=== PATIENT | female | born 2000 | race Caucasian/White ===

== ENCOUNTER 2020-08-20 23:28 | Emergency (ER) | payer OTHER, MEDICAID, SELFPAY ==
[2020-08-21 00:30] VITALS: BP 141/79; PULSE 78; RESP 18; TEMP 36.6; O2SAT 100; BMI 45.6
--- NOTE | 2020-08-21 00:30 | CT_ITS ---
EXAMINATION: CT ABDOMEN AND PELVIS WITH CONTRAST CLINICAL INFORMATION: Diffuse abdominal pain. COMPARISON: None. TECHNIQUE: Contiguous axial thin section helical images of the abdomen and pelvis were performed following the administration of 85 mL of intravenous Omnipaque 350. The data set was reformatted in the coronal and sagittal planes and reviewed on an independent workstation. DLP: 1103 mGy-cm. FINDINGS: The visualized lung bases are clear. The visualized portions of the heart are unremarkable. The liver is of normal size and attenuation without focal lesions nor intrahepatic biliary ductal dilation. A normal gallbladder is identified. There is no wall thickening or discernible pericholecystic fluid. The spleen, pancreas, adrenal glands are unremarkable. Both kidneys are of normal size and attenuation without hydronephrosis or nephrolithiasis. Following the administration of IV contrast, prompt symmetric nephrograms are displayed. There is no abdominal free fluid. There is neither mesenteric nor retroperitoneal lymphadenopathy. Normal unopacified loops of small and large bowel are identified. A normal appendix is identified. There is no pelvic free fluid. The urinary bladder is unremarkable. There is neither pelvic nor inguinal lymphadenopathy. Bone windows: Neither sclerotic nor lytic bone lesions are identified. CT/CT abdomen pelvis w con IMPRESSION: No evidence for acute abdominal or pelvic inflammatory or infectious processes. Automated exposure control (Care Dose) Adjustment of the mA and/or kv according to patient size (this includes techniques or standardized protocols for targeted exams where dose is matched to indication / reason for exam; i.e. extremities or head).
--- NOTE | 2020-08-21 00:31 | ED_ITS ---
HPI - Abdominal Pain General Chief Complaint: Abdominal Pain Stated Complaint: ABD PAIN Time Seen by Provider: 08/20/20 23:48 Source: patient Mode of arrival: ambulatory Limitations: no limitations History of Present Illness HPI narrative: Patient comes to emergency room complaining of 3 weeks of abdominal pain. Patient states that she has history of constipation, this morning she had a bowel movement that was very hard and caused mild anal bleeding. Patient states the pain is diffuse, sometimes in the left upper quadrant, but this time it is mostly in the right lower quadrant. Patient states she has had intermittent nausea, vomiting, no diarrhea MD elicited complaint: abdominal pain Related Data Previous Rx's Medication Instructions Recorded polyethylene glycol 3350 [Miralax] 17 g PO BID #30 ea 08/21/20 Allergies Allergy/AdvReac Type Severity Reaction Status Date / Time No Known Allergies Allergy Unverified 05/11/20 19:40 [No Known Allergies*] Review of Systems Review of Systems Constitutional : No Weight loss, No Fever, No Chills, No Night Sweats, No Fatigue, No Malaise ENT/Mouth : No Hearing loss, No Ear Pain, No Nasal Congestion, No Sinus Pain, No Hoarseness, No sore throat, No Rhinorrhea, No Swallowing Difficulty Eyes: No Eye Pain, No Swelling, No Redness, No Foreign Body, No Discharge, No Vision Changes Cardiovascular : No Chest Pain, No SOB, No Dyspnea on Exertion, No Orthopnea, No Edema, No Palpitations Respiratory : No Cough, No Sputum, No Wheezing, No Smoke Exposure, No Dyspnea Gastrointestinal : Complaining of nausea, occasional vomiting, no diarrhea, complaining of constipation, complaining intermittent abdominal pain, worse in the move right lower quadrant, sometimes in the left upper quadrant Genitourinary : no irregular bleeding, No Dysuria, No Urinary Frequency, No Hematuria, No Urinary Incontinence, No Urgency, No Flank Pain, No Urinary Flow Changes, No Hesitancy Musculoskeletal : No joint pain, No Myalgias, No Joint Swelling Skin : No Skin Lesions, No rash Neuro : No Weakness, No Numbness, No Paresthesias, No Loss of Consciousness, No Dizziness, No Headache Psych : No Anxiety/Panic, No Depression, No SI/HI/AH/VH, No Social Issues, Heme/Lymph: No Bruising, No Bleeding,No Lymphadenopathy Endocrine : No Polyuria, No Polydipsia, No Temperature Intolerance Physical Exam Vital Signs: Vital Signs: Last Vital Signs Temp 97.9 F 08/21/20 00:30 Pulse 76 08/21/20 01:07 Resp 18 08/21/20 01:07 BP 141/79 H 08/21/20 00:30 Pulse Ox 100 08/21/20 00:30 Body Mass Index 45.6 Appearance: Alert. Oriented X3. No acute distress. Eyes: Pupils equal, round and reactive to light. ENT: Pharynx normal. Neck: Normal inspection. Neck supple. No lymph nodes noted. No crepitus CVS: Normal heart rate and rhythm. Pulses normal. Normal S1 and S2 Respiratory: No respiratory distress. Breath sounds normal. No Wheezing. No rales Abdomen: Soft , mild tenderness over the suprapubic and right lower quadrant, no guarding, no rebound. No rigidity. No distention. good BS x4 Skin: Skin warm and dry. Normal skin color. Normal skin turgor. Extremities: No lower extremity edema. No lower extremity edema. No Lacerations. No Rash Neuro: Oriented X 3. No motor deficit. No sensory deficit. Moving all extermities. No slurred speech. Course Course Course Narrative: No acute pathology seen on patient's labs, CT scan is still pending. Patient's abdominal exam is benign, expecting the patient to be discharged home, patient's abdominal discomfort likely secondary to constipation. Sign out given to Dr. Massey [facility] - Abdominal Pain Lab Data Result diagrams: 08/21/20 00:55 08/21/20 00:55 Labs: Lab Results 08/21/20 08/21/20 08/21/20 Range/Units 00:55 00:55 00:55 WBC 11.5 H (4.8-10.8) X10*3/uL RBC 4.32 (4.20-5.50) X10*6/uL Hgb 11.7 L (12.0-16.0) g/dl Hct 36.7 L (37-47) % MCV 85.0 (80-98) fL MCH 27.1 (27.0-33.0) pg MCHC 31.9 (31.0-35.0) g/dl RDW 14.2 (11.0-16.0) % Plt Count 377 (160-400) X10*3/uL MPV 10.8 (9.4-12.3) fL Immature Gran % (Auto) 0.3 (0.0-0.4) % Neut % (Auto) 61.0 (45-73) % Lymph % (Auto) 30.3 (20-40) % [place] % (Auto) 7.5 (2-11) % Eos % (Auto) 0.5 (0-4) % Baso % (Auto) 0.4 (0-2) % Lymph # (Auto) 3.5 (1.2-4.9) X10*3/uL [place] # (Auto) 0.9 (0.1-1.2) X10*3/uL Eos # (Auto) 0.1 (0.0-0.4) X10*3/uL Baso # (Auto) 0.1 (0.0-0.2) X10*3/uL Abs Immat Gran (auto) 0.04 H (0.00-0.03) X10*3/uL Absolute Neuts (auto) 7.0 (2.0-8.3) X10*3/uL Absolute Nucleated RBC 0.000 (0.0-0.012) X10*3/uL Nucleated RBC % (auto) 0.0 (0.0-0.2) /100WBC Sodium 141 (135-145) mmol/L Potassium 4.0 (3.3-5.1) mmol/l Chloride 107 (96-108) mmol/L Carbon Dioxide 24 (22-29) mmol/L Anion Gap 14 (12-20) BUN 11 (9-16) mg/dL Creatinine 0.75 (0.5-1.4) mg/dL Estim Creat Clear Calc 175.4 Estimated GFR > 60 Random Glucose 94 (60-115) mg/dL Calcium 9.4 (8.4-10.2) mg/dL Total Bilirubin < 0.2 (0.0-1.0) mg/dL Direct Bilirubin < 0.2 (0.0-0.5) mg/dL AST 16 (5-31) U/L ALT 16 (0-31) U/L Alkaline Phosphatase 55 (39-117) U/L Total Protein 7.4 (6.5-8.0) g/dL Albumin 4.3 (3.5-5.0) g/dL Lipase 18 (8-78) U/L Urine Color YELLOW Urine Appearance CLEAR Urine pH 6.0 (5.0-8.0) Ur Specific [place] >= 1.030 H (1.005-1.025) Urine Protein NEG (NEG-TRACE) MG/DL Urine Glucose (UA) NEG (NEG) MG/DL Urine Ketones NEG (NEG) MG/DL Urine Blood 2+ H (NEG) Urine Nitrite NEG (NEG) Ur Leukocyte Esterase NEG (NEG) Urine RBC 5-9 H (0) /HPF Urine WBC 1-4 (0-4) /HPF Ur Squamous Epith Cells 1+ /LPF Urine Bacteria 1+ /LPF Urine Mucus 1+ /LPF Urine Test NEGATIVE (NEGATIVE) Discharge Plan Discharge Clinical Impression: Abdominal pain Qualifiers: Abdominal location: unspecified location Qualified Code(s): R10.9 - Unspecified abdominal pain Constipation Qualifiers: Constipation type: unspecified constipation type Qualified Code(s): K59.00 - Constipation, unspecified Patient Disposition: Home, Self-Care Instructions: Constipation (ED), Abdominal Pain (ED) Additional Instructions: Please follow-up with your primary care physician tomorrow. If you have any worsening or new symptoms, please return to the emergency room or call 911 Prescriptions: New polyethylene glycol 3350 [Miralax] 17 gram powder in packet 17 g PO BID Qty: 30 RF: 0 PMFSH Social History Social History Smoking Status: Never smoker Use of substances other than those prescribed or required for medical reasons: No Advance Directives: No
[2020-08-21 01:02] LABS: Basophils Absolute Auto 0.1 X10*3/uL (0.0-0.2); Basophils Percent Auto 0.4 % (0-2); Eosinophils Absolute Auto 0.1 X10*3/uL (0.0-0.4); Eosinophils Percent Auto 0.5 % (0-4); Hematocrit 36.7 % (37-47); Hemoglobin 11.7 g/dl (12.0-16.0); Imm Gran Abs Auto 0.04 X10*3/uL (0.00-0.03); Imm Gran Pct Auto 0.3 % (0.0-0.4); Lymphocytes Absolute Auto 3.5 X10*3/uL (1.2-4.9); Lymphocytes Percent Auto 30.3 % (20-40); MANUAL DIFF FLAG NO; Mean Corpuscular HGB Conc 31.9 g/dl (31.0-35.0); Mean Corpuscular Hemoglobin 27.1 pg (27.0-33.0); Mean Platelet Volume 10.8 fL (9.4-12.3); Monocytes Absolute Auto 0.9 X10*3/uL (0.1-1.2); Monocytes Percent Auto 7.5 % (2-11); Platelet Count 377 X10*3/uL (160-400); Red Blood Count 4.32 X10*6/uL (4.20-5.50); Red Cell Distribution Width 14.2 % (11.0-16.0); White Blood Count 11.5 X10*3/uL (4.8-10.8)
[2020-08-21 01:07] VITALS: PULSE 76; RESP 18
[2020-08-21 01:07] LABS: Glucose Urine UA NEG (NEG); Leukocyte Esterase Urine NEG (NEG); Nitrite Urine NEG (NEG); Specific Gravity - Urine >= 1.030 (1.005-1.025); Urine Blood 2+ (NEG); Urine Ketones NEG (NEG); Urine Protein NEG (NEG-TRACE)
[2020-08-21 01:08] LABS: Appearance Urine CLEAR; Color Urine YELLOW
[2020-08-21 01:10] LABS: UPreg QC Valid YES; Urine Pregnancy NEGATIVE (NEGATIVE)
[2020-08-21 01:19] LABS: Bacteria Urine 1+ /LPF; Mucus Urine 1+ /LPF; Squamous Epithelial Cell Urine 1+ /LPF
[2020-08-21 01:26] LABS: Alanine Aminotransferase 16 U/L (0-31); Albumin Level 4.3 g/dL (3.5-5.0); Alkaline Phosphatase 55 U/L (39-117); Anion Gap 14 (12-20); Aspartate Amino Transferase 16 U/L (5-31); Bilirubin Direct < 0.2 mg/dL (0.0-0.5); Bilirubin Total < 0.2 mg/dL (0.0-1.0); Blood Urea Nitrogen 11 mg/dL (9-16); Calcium 9.4 mg/dL (8.4-10.2); Carbon Dioxide 24 mmol/L (22-29); Chloride 107 mmol/L (96-108); Creatinine Clr Calc Pharmacy 175.4; Estimated Glomerular Filt Rate > 60; Glucose Random 94 mg/dL (60-115); Lipase 18 U/L (8-78); Sodium 141 mmol/L (135-145); Total Protein 7.4 g/dL (6.5-8.0)
[2020-08-21 02:41] LABS: COVID-19 Test Negative (Negative); IDNOW Serial# 9DD0AD1C
[2020-08-21] MEDS: iohexoL 350 MG/ML 100 ML INFUS..BTL 85 ML IV (03:02)
[2020-08-21] MEDS: Azithromycin 500 MG TABLET 1000 MG PO (03:20)
[2020-08-21] MEDS: cefTRIAXone sodium 250 MG, Lidocaine HCl 1 % MPF 0.9 ML IM (03:21)
[2020-08-22 21:57] LABS: C. trachomatis RNA TMA NOT DETECTED (NOT DETECTED); N. gonorrhoeae RNA TMA NOT DETECTED (NOT DETECTED)
== END 2020-08-21 03:35 | disposition home or self-care (01) ==
PROVIDERS: Emergency Provider Emergency Medicine
DX: K59.00 Constipation, unspecified (principal); R10.9 Unspecified abdominal pain; Z20.828 Contact with and (suspected) exposure to other viral communicable diseases; Z79.899 Other long term (current) drug therapy
CPT/HCPCS: 36415; 74177; 80048; 80076; 81001; 81025; 83690; 85025; 87491; 87591; 87635; 96372; 99284; J0696; Q9967

== ENCOUNTER 2020-12-12 21:49 | Emergency (ER) | payer OTHER, MEDICAID, SELFPAY ==
--- NOTE | ~2020-12-12 | XR_ITS ---
EXAMINATION: XR LUMBOSACRAL SPINE CLINICAL INFORMATION: Lower back pain COMPARISON: 02/15/2019 TECHNIQUE: Three views of the lumbosacral spine. FINDINGS: The vertebral bodies and posterior elements are normal. The disc spaces are preserved and the vertebral alignment is normal. The sacroiliac joints are symmetric. The sacrum is intact. The bowel gas pattern is unremarkable. The paraspinal soft tissues are normal. XR/XR lumbar spine 2-3V IMPRESSION: Unremarkable appearance of the lumbar spine.
--- NOTE | ~2020-12-12 | XR_ITS ---
EXAMINATION: XR CHEST CLINICAL INFORMATION: Chest pain COMPARISON: None TECHNIQUE: Frontal view of the chest was obtained. FINDINGS: The lungs are well expanded. There is no focal consolidation, edema, or effusion. No pneumothorax. The cardiomediastinal silhouette is within normal limits. No acute osseous abnormality. XR/XR chest 1V IMPRESSION: Clear lungs.
[2020-12-12 21:50] VITALS: BP 144/103; PULSE 94; RESP 18; TEMP 36.3; O2SAT 100; BMI 41.3
--- NOTE | 2020-12-12 23:26 | PC.NURSE ---
Pt aaox4, resting on stretcher in NAD, breathing with ease on RA. Pt reports R side back pain with R arm pain/weakness. Pt speech clear, no facial droop, neuros grossly intact. Pt agreeable to plan for provider to see pt and place orders, for this RN to carry out orders and reassess.
--- NOTE | 2020-12-12 23:32 | ECG_ITS ---
Test Reason : BACK PAIN Blood Pressure : / mmHG Vent. Rate : 089 BPM Atrial Rate : 089 BPM P-R Int : 136 ms QRS Dur : 078 ms QT Int : 358 ms P-R-T Axes : 055 056 031 degrees QTc Int : 435 ms Normal sinus rhythm Normal ECG When compared with ECG of 02-NOV-2019 01:13, No significant change was found Referred By: Shawnee Justice Electronically Signed By:Jordi Brown
--- NOTE | 2020-12-12 23:46 | ED_ITS ---
HPI - General Adult General Chief complaint: Back Pain/Injury Stated complaint: BACK PAIN Time Seen by Provider: 12/12/20 22:05 Source: patient Mode of arrival: ambulatory Limitations: no limitations History of Present Illness HPI narrative: 20 yo female with asthma, anemia here with multiple complaints 1. concern for due to intermittent nausea/vomiting for 2 weeks requesting hcg serum test. 2. a few days of lower back pain that is spasming without associated trauma but radiates up and wraps around her chest which makes her R arm feel week. 3. intermittend dizziness at times and she is unsure if it has to do wth her anemia complaint: lower back pain, concern for Onset (ago): day(s) (few) Location: back Radiation: other (radiates up back and around chest) Severity: moderate Quality: other (throbbing and spasming) Pain Consistency: intermittent Relieving factors: none Exacerbating factors: movement Associated symptoms: chest pain and nausea/vomiting Treatments prior to arrival: none Related Data Previous Rx's Medication Instructions Recorded polyethylene glycol 3350 [Miralax] 17 g PO BID #30 ea 08/21/20 cefuroxime axetil 500 mg PO BID 7 Days #28 tab 12/13/20 diazepam [Valium] 5 mg PO TID PRN #10 tab 12/13/20 ibuprofen 600 mg PO Q6H PRN #30 tab 12/13/20 lidocaine 1 patch TOPICAL DAILY PRN #10 ea 12/13/20 ondansetron 4 mg PO Q8H PRN #20 tab 12/13/20 Allergies Allergy/AdvReac Type Severity Reaction Status Date / Time No Known Allergies Allergy Unverified 05/11/20 19:40 [No Known Allergies*] Review of Systems Review of Systems: Constitutional : No Weight loss, No Fever, No Chills ENT/Mouth : No sore throat, No Rhinorrhea Eyes: No Eye Pain, No Swelling Cardiovascular : pos Chest Pain, no SOB, no Dyspnea on Exertion, No Orthopnea, No Edema, No Palpitations Respiratory : No Cough, No Sputum Gastrointestinal : pos Nausea, pos Vomiting, No Diarrhea, No abdominal Pain, No Hematochezia, No Melena Genitourinary : No Dysuria, No Urinary Frequency Musculoskeletal : No joint pain, No Myalgias, No Joint Swelling, pos back pain Skin : No Skin Lesions, No rash Neuro : No Weakness, No Numbness, pos Dizziness, No Headache Psych : No Anxiety/Panic, No Depression Heme/Lymph: No Bruising, No Lymphadenopathy Endocrine : No Polyuria, No Polydipsia All other systems reviewed and are negative [facility] Past Medical History Attestation statement: The following information was validated with the patient. Medical History Anemia Asthma Non-alcoholic fatty liver disease Surgical History Hx of lymph node excision Social History Social History Smoking Status: Never smoker Use of substances other than those prescribed or required for medical reasons: No Advance Directives: No Physical Exam Vital Signs: Vital Signs: Last Vital Signs Temp 97.4 F 12/12/20 21:50 Pulse 85 12/13/20 00:45 Resp 18 12/13/20 00:45 BP 123/55 L 12/13/20 00:45 Pulse Ox 100 12/13/20 00:45 Body Mass Index 41.3 Appearance: Alert. Oriented X3. No acute distress. Eyes: Pupils equal, round and reactive to light. ENT: Pharynx normal. Neck: Normal inspection. Neck supple. CVS: Normal heart rate and rhythm. Pulses normal. Chest: ttp along R anterior chest wall that reproduces her pain Respiratory: No respiratory distress. Breath sounds normal. Abdomen: Soft and nontender. Back: bilateral lumbar spine paraspinal ttp no midline ttp, no cervical ttp Skin: Skin warm and dry. Normal skin color. Normal skin turgor. Extremities: No lower extremity edema. No calf ttp Neuro: Oriented X 3. No motor deficit. No sensory deficit. 5/5 in RUE 2+ radial pulse and good sensation Course Course Course Narrative: PO ceftin for UTI, otherwise no acute findings, stable for DC Medical Decision Making [facility] Narrative Medical decision making narrative: 20 yo female with asthma, anemia here with reproduceable low back pain no IVDA< no fevers, no midline ttp, also c/o reproduceable CWP no ACS risk factors PERC negative EKG troponin CXR ordered, for low back no concerning features and her RUE is 5/5 CMS intact - PO pain medications, UA ordered, patient also requesting hcg serum testing to evaluate for Lab Data Result diagrams: 12/13/20 00:05 12/13/20 00:04 Labs: Lab Results 12/13/20 12/13/20 12/13/20 Range/Units 00:04 00:04 00:04 WBC (4.8-10.8) X10*3/uL RBC (4.20-5.50) X10*6/uL Hgb (12.0-16.0) g/dl Hct (37-47) % MCV (80-98) fL MCH (27.0-33.0) pg MCHC (31.0-35.0) g/dl RDW (11.0-16.0) % Plt Count (160-400) X10*3/uL MPV (9.4-12.3) fL Immature Gran % (Auto) (0.0-0.4) % Neut % (Auto) (45-73) % Lymph % (Auto) (20-40) % [place] % (Auto) (2-11) % Eos % (Auto) (0-4) % Baso % (Auto) (0-2) % Lymph # (Auto) (1.2-4.9) X10*3/uL [place] # (Auto) (0.1-1.2) X10*3/uL Eos # (Auto) (0.0-0.4) X10*3/uL Baso # (Auto) (0.0-0.2) X10*3/uL Abs Immat Gran (auto) (0.00-0.03) X10*3/uL Absolute Neuts (auto) (2.0-8.3) X10*3/uL Absolute Nucleated RBC (0.0-0.012) X10*3/uL Nucleated RBC % (auto) (0.0-0.2) /100WBC Hold Blue Top Sodium 139 (135-145) mmol/L Potassium 4.1 (3.3-5.1) mmol/L Chloride 105 (96-108) mmol/L Carbon Dioxide 24 (22-29) mmol/L Anion Gap 14 (12-20) BUN 12 (9-16) mg/dL Creatinine 0.81 (0.5-1.4) mg/dL Estim Creat Clear Calc 158.3 Estimated GFR > 60 Random Glucose 89 (60-115) mg/dL Calcium 9.4 (8.4-10.2) mg/dL Magnesium 2.2 (1.6-2.6) mg/dL Total Bilirubin 0.3 (0.0-1.0) mg/dL Direct Bilirubin < 0.2 (0.0-0.5) mg/dL AST 15 (5-31) U/L ALT 20 (0-31) U/L Alkaline Phosphatase 63 (39-117) U/L Troponin I High Sens < 3.5 (<3.5-17.0) ng/L Total Protein 7.3 (6.5-8.0) g/dL Albumin 4.3 (3.5-5.0) g/dL Lipase 16 (8-78) U/L Beta HCG, Quant < 2 mIU/mL Urine Color YELLOW Urine Appearance HAZY Urine pH 6.5 (5.0-8.0) Ur Specific [place] 1.025 (1.005-1.025) Urine Protein NEG (NEG-TRACE) MG/DL Urine Glucose (UA) NEG (NEG) MG/DL Urine Ketones NEG (NEG) MG/DL Urine Blood NEG (NEG) Urine Nitrite POS H (NEG) Ur Leukocyte Esterase NEG (NEG) Urine RBC 1-4 (0) /HPF Urine WBC 5-9 H (0-4) /HPF Ur Squamous Epith Cells 1+ /LPF Urine Bacteria 4+ /LPF 12/13/20 12/13/20 Range/Units 00:05 00:05 WBC 12.6 H (4.8-10.8) X10*3/uL RBC 4.41 (4.20-5.50) X10*6/uL Hgb 11.5 L (12.0-16.0) g/dl Hct 36.9 L (37-47) % MCV 83.7 (80-98) fL MCH 26.1 L (27.0-33.0) pg MCHC 31.2 (31.0-35.0) g/dl RDW 14.4 (11.0-16.0) % Plt Count 385 (160-400) X10*3/uL MPV 10.7 (9.4-12.3) fL Immature Gran % (Auto) 0.3 (0.0-0.4) % Neut % (Auto) 65.4 (45-73) % Lymph % (Auto) 26.5 (20-40) % [place] % (Auto) 6.7 (2-11) % Eos % (Auto) 0.5 (0-4) % Baso % (Auto) 0.6 (0-2) % Lymph # (Auto) 3.3 (1.2-4.9) X10*3/uL [place] # (Auto) 0.9 (0.1-1.2) X10*3/uL Eos # (Auto) 0.1 (0.0-0.4) X10*3/uL Baso # (Auto) 0.1 (0.0-0.2) X10*3/uL Abs Immat Gran (auto) 0.04 H (0.00-0.03) X10*3/uL Absolute Neuts (auto) 8.3 (2.0-8.3) X10*3/uL Absolute Nucleated RBC 0.000 (0.0-0.012) X10*3/uL Nucleated RBC % (auto) 0.0 (0.0-0.2) /100WBC Hold Blue Top SEE NOTE Sodium (135-145) mmol/L Potassium (3.3-5.1) mmol/L Chloride (96-108) mmol/L Carbon Dioxide (22-29) mmol/L Anion Gap (12-20) BUN (9-16) mg/dL Creatinine (0.5-1.4) mg/dL Estim Creat Clear Calc Estimated GFR Random Glucose (60-115) mg/dL Calcium (8.4-10.2) mg/dL Magnesium (1.6-2.6) mg/dL Total Bilirubin (0.0-1.0) mg/dL Direct Bilirubin (0.0-0.5) mg/dL AST (5-31) U/L ALT (0-31) U/L Alkaline Phosphatase (39-117) U/L Troponin I High Sens (<3.5-17.0) ng/L Total Protein (6.5-8.0) g/dL Albumin (3.5-5.0) g/dL Lipase (8-78) U/L Beta HCG, Quant mIU/mL Urine Color Urine Appearance Urine pH (5.0-8.0) Ur Specific [place] (1.005-1.025) Urine Protein (NEG-TRACE) MG/DL Urine Glucose (UA) (NEG) MG/DL Urine Ketones (NEG) MG/DL Urine Blood (NEG) Urine Nitrite (NEG) Ur Leukocyte Esterase (NEG) Urine RBC (0) /HPF Urine WBC (0-4) /HPF Ur Squamous Epith Cells /LPF Urine Bacteria /LPF ECG Data Attestation: I personally reviewed and interpreted this ECG as follows: Interpretation: Rate: 89 Rhythm: NSR [place]: normal Normal P waves. Normal GAVINO. Normal QRS complex. ST T wave : normal , no PATRICIA qTC: normal prior studies: no acute ischemia The study has been interpreted contemporaneously by me. . Discharge Plan Discharge Clinical Impression: Acute lumbar back pain Qualifiers: Back pain laterality: bilateral Sciatica presence: without sciatica Qualified Code(s): M54.5 - Low back pain UTI (urinary tract infection) Qualifiers: Urinary tract infection type: site unspecified Hematuria presence: without hematuria Qualified Code(s): N39.0 - Urinary tract infection, site not specified Patient Disposition: Home, Self-Care Instructions: Urinary Tract Infection in Women (ED), Back Pain (ED) Additional Instructions: return to ED for any worsening symptoms or concerns Prescriptions: New cefuroxime axetil 250 mg tablet 500 mg PO BID 7 Days Qty: 28 RF: 0 lidocaine 4 % adhesive patch,medicated 1 patch topical DAILY PRN (Reason: pain) Qty: 10 RF: 0 ibuprofen 600 mg tablet 600 mg PO Q6H PRN (Reason: pain) Qty: 30 RF: 0 ondansetron 4 mg tablet,disintegrating 4 mg PO Q8H PRN (Reason: nausea and vomiting) Qty: 20 RF: 0 diazepam [Valium] 5 mg tablet 5 mg PO TID PRN (Reason: muscle spasm) Qty: 10 RF: 0 No Action polyethylene glycol 3350 [Miralax] 17 gram powder in packet 17 g PO BID Qty: 30 RF: 0 Referrals: Leah Jean MD [Primary Care Provider] - 2 days (if not better)
[2020-12-12] MEDS: oxyCODONE HCl Immed Release 5 MG TABLET PO (23:49)
[2020-12-13 00:13] LABS: Glucose Urine UA NEG (NEG); Leukocyte Esterase Urine NEG (NEG); Nitrite Urine POS (NEG); PH 6.5 (5.0-8.0); Specific Gravity - Urine 1.025 (1.005-1.025); UACC Culture Trigger YES; Urine Blood NEG (NEG); Urine Ketones NEG (NEG); Urine Protein NEG (NEG-TRACE)
[2020-12-13 00:13] LABS: MANUAL DIFF FLAG NO
[2020-12-13 00:16] LABS: Appearance Urine HAZY; Color Urine YELLOW
[2020-12-13 00:16] LABS: Basophils Absolute Auto 0.1 X10*3/uL (0.0-0.2); Basophils Percent Auto 0.6 % (0-2); Eosinophils Absolute Auto 0.1 X10*3/uL (0.0-0.4); Eosinophils Percent Auto 0.5 % (0-4); Hematocrit 36.9 % (37-47); Hemoglobin 11.5 g/dl (12.0-16.0); Imm Gran Abs Auto 0.04 X10*3/uL (0.00-0.03); Imm Gran Pct Auto 0.3 % (0.0-0.4); Lymphocytes Absolute Auto 3.3 X10*3/uL (1.2-4.9); Lymphocytes Percent Auto 26.5 % (20-40); Mean Corpuscular HGB Conc 31.2 g/dl (31.0-35.0); Mean Corpuscular Hemoglobin 26.1 pg (27.0-33.0); Mean Corpuscular Volume 83.7 fL (80-98); Mean Platelet Volume 10.7 fL (9.4-12.3); Monocytes Absolute Auto 0.9 X10*3/uL (0.1-1.2); Monocytes Percent Auto 6.7 % (2-11); Neutrophils Absolute Auto 8.3 X10*3/uL (2.0-8.3); Neutrophils Percent Auto 65.4 % (45-73); Platelet Count 385 X10*3/uL (160-400); Red Blood Count 4.41 X10*6/uL (4.20-5.50); Red Cell Distribution Width 14.4 % (11.0-16.0); White Blood Count 12.6 X10*3/uL (4.8-10.8)
[2020-12-13 00:22] LABS: Bacteria Urine 4+ /LPF; Squamous Epithelial Cell Urine 1+ /LPF
[2020-12-13 00:45] VITALS: BP 123/55; PULSE 85; RESP 18; O2SAT 100
[2020-12-13 00:53] LABS: Alanine Aminotransferase 20 U/L (0-31); Albumin Level 4.3 g/dL (3.5-5.0); Alkaline Phosphatase 63 U/L (39-117); Anion Gap 14 (12-20); Aspartate Amino Transferase 15 U/L (5-31); Bilirubin Direct < 0.2 mg/dL (0.0-0.5); Bilirubin Total 0.3 mg/dL (0.0-1.0); Blood Urea Nitrogen 12 mg/dL (9-16); Calcium 9.4 mg/dL (8.4-10.2); Carbon Dioxide 24 mmol/L (22-29); Chloride 105 mmol/L (96-108); Creatinine Clr Calc Pharmacy 158.3; Estimated Glomerular Filt Rate > 60; Glucose Random 89 mg/dL (60-115); Lipase 16 U/L (8-78); Magnesium 2.2 mg/dL (1.6-2.6); Potassium 4.1 mmol/L (3.3-5.1); Sodium 139 mmol/L (135-145); Total Protein 7.3 g/dL (6.5-8.0)
[2020-12-13 00:59] LABS: Troponin-I High Sensitivity < 3.5 ng/L (<3.5-17.0)
[2020-12-13 01:00] LABS: HCG Quantitative < 2 mIU/mL
[2020-12-13] MEDS: Lidocaine 4 % Patch ADH..PATCH 1 PATCH TRANSDERMA (01:35)
[2020-12-13] MEDS: Ketorolac Tromethamine 60 MG/2 ML VIAL IM (01:36)
== END 2020-12-13 01:49 | disposition home or self-care (01) ==
PROVIDERS: Emergency Provider Emergency Medicine; PCP Pediatrics Adolescent Medicine
DX: N39.0 Urinary tract infection, site not specified (principal); M54.5 Low back pain
CPT/HCPCS: 36415; 71045; 72100; 80048; 80076; 81001; 81003; 83690; 83735; 84484; 84702; 85025; 87086; 87088; 87186; 93005; 96372; 99284; 99285; J1885

== ENCOUNTER 2021-04-04 20:24 | Emergency (ER) | payer OTHER, MEDICAID, SELFPAY ==
--- NOTE | ~2021-04-04 | XR_ITS ---
EXAMINATION: XR CHEST CLINICAL INFORMATION: Chest discomfort COMPARISON: 12/13/2020 TECHNIQUE: Frontal view of the chest was obtained. FINDINGS: No acute finding. No failure or infiltrate. No effusion. Lung h[place] are grossly clear. The cardiac silhouette is within normal limits. XR/XR chest 1V IMPRESSION: No acute finding.
[2021-04-04 20:43] VITALS: BP 147/96; PULSE 111; RESP 16; TEMP 37.4; O2SAT 99; BMI 38.7
--- NOTE | 2021-04-04 21:40 | ED_ITS ---
HPI - URI/Sore Throat General Chief Complaint: Upper Respiratory Symptoms Stated Complaint: COVID + Time Seen by Provider: 04/04/21 21:39 Source: patient Mode of arrival: ambulatory Limitations: no limitations History of Present Illness HPI Narrative: Patient has had headache and her aunt and cousin are positive for COVID. Patient is partially vaccinated MD elicited complaint: cough Onset (ago): day(s) Consistency: constant Severity: mild Description of mucous: clear Related Data Previous Rx's Medication Instructions Recorded polyethylene glycol 3350 17 gram 17 g PO BID #30 ea 08/21/20 oral powder packet (Miralax) cefuroxime axetil 250 mg tablet 500 mg PO BID 7 Days #28 tab 12/13/20 diazepam 5 mg tablet (Valium) 5 mg PO TID PRN #10 tab 12/13/20 ibuprofen 600 mg tablet 600 mg PO Q6H PRN #30 tab 12/13/20 lidocaine 4 % topical patch 1 patch TOPICAL DAILY PRN #10 ea 12/13/20 ondansetron 4 mg disintegrating 4 mg PO Q8H PRN #20 tab 12/13/20 tablet Allergies Allergy/AdvReac Type Severity Reaction Status Date / Time No Known Allergies Allergy Verified 04/04/21 20:47 [No Known Allergies*] Review of Systems Constitutional: Constitutional: Reports no additional constitutional complaints Eyes: Eyes: Reports no additional eye complaints ENT: Denies dizziness Cardiovascular: Cardiovascular: Reports no additional cardiovascular complaints Respiratory: Respiratory: Reports as per HPI Gastrointestinal: Gastrointestinal: Reports no additional gastrointestinal complaints Genitourinary: Genitourinary: Reports no additional female genitourinary complaints Musculoskeletal: Musculoskeletal: Reports no additional musculoskeletal complaints Integumentary/Breasts: Skin/Breast: Denies rash Neurologic: Reports system reviewed and no additional complaints, except as documented, Denies dizziness and Denies Sensory deficit (Neuro) Psychiatric: Psychiatric: Denies anxiety [facility] Past Medical History Medical History Anemia Asthma Non-alcoholic fatty liver disease Surgical History Hx of lymph node excision Social History Social History Advance Directives: No Advance Directives Information Provided: Yes Physical Exam Vital Signs: Vital Signs: Last Vital Signs Temp 99.4 F 04/04/21 20:43 Pulse 111 H 04/04/21 20:43 Resp 16 04/04/21 20:43 BP 147/96 H 04/04/21 20:43 Pulse Ox 99 04/04/21 20:43 Body Mass Index 38.7 Const: General: healthy appearing Nutritional Appearance: obese Orientation/consciousness: oriented to person and patient oriented x3 Limitations: no limitations HENMT: Head: Yes normal to inspection Ears: external ears normal General nose exam: Normal external nose present Mouth: Normal oral and palatal mucosa present and oropharynx normal Throat: Yes posterior oropharynx normal Eyes: General: appearance normal, both eyes and all related structures Neck: Other: supple Neck: Yes normal visual inspection Chest: Chest palpation & inspection: normal inspection of the chest Resp: Auscultation: clear to auscultation bilaterally Cardio: Jugular venous distension: no JVD Rate: regular rate Rhythm: regular rhythm Heart sounds: S1 normal heart sound present and S2 normal heart sound present GI: Inspection: Yes normal to inspection Palpation (GI): Soft to palpation, nontender and No hepatosplenomegaly present Auscultation: normal bowel sounds : General: Yes no CVA tenderness Back/Spine/Pelvis: Back: no CVA tenderness Skin: General skin exam: no rashes or lesions noted Neuro: General: oriented to person and patient oriented x3 Cranial nerves: Yes CN's II-XII intact bilaterally Motor exam (neuro): 5/5 motor strength present throughout Sensory Exam: No Sensory deficit (Neuro) Extrem: General: Yes normal to inspection Psych: Appearance: grossly normal Course Reevaluation(s) Reevaluation #1: patient with no evidence of active COVID disease at this time. Explained to the patient that she needs to remain in isolation for 10 days Time: 21:47 MDM - URI/Sore Throat Imaging Data Chest x-ray: Attestation: I personally reviewed and interpreted this imaging study as follows: My impression: no infiltrate Discharge Plan Discharge Clinical Impression: COVID-19 Patient Disposition: Home, Self-Care Instructions: COVID-19 (Coronavirus Disease 2019) (ED) Prescriptions: No Action cefuroxime axetil 250 mg tablet 500 mg PO BID 7 Days Qty: 28 RF: 0 lidocaine 4 % adhesive patch,medicated 1 patch topical DAILY PRN (Reason: pain) Qty: 10 RF: 0 ibuprofen 600 mg tablet 600 mg PO Q6H PRN (Reason: pain) Qty: 30 RF: 0 ondansetron 4 mg tablet,disintegrating 4 mg PO Q8H PRN (Reason: nausea and vomiting) Qty: 20 RF: 0 diazepam [Valium] 5 mg tablet 5 mg PO TID PRN (Reason: muscle spasm) Qty: 10 RF: 0 polyethylene glycol 3350 [Miralax] 17 gram powder in packet 17 g PO BID Qty: 30 RF: 0
== END 2021-04-04 21:56 | disposition home or self-care (01) ==
PROVIDERS: Emergency Provider Emergency Medicine; PCP Internal Medicine
DX: U07.1 COVID-19 (principal); R05 Cough; Z79.899 Other long term (current) drug therapy
CPT/HCPCS: 71045; 99283

== ENCOUNTER 2021-06-10 22:19 | Emergency (ER) | payer OTHER, MEDICAID, SELFPAY ==
--- NOTE | 2021-06-10 22:29 | ED.EAR ---
HPI - Ear Problem General Chief complaint: Upper Respiratory Symptoms Stated complaint: ear ache Source: patient Mode of arrival: ambulatory Limitations: no limitations History of Present Illness HPI Narrative: Patient presents with bilateral ear pain, throat pain and difficulty swallowing. Does not report any fevers or chills. MD Complaint: ear pain Location: bilateral Duration: constant Severity: moderate Relieving factors: nothing Exacerbating factors: chewing Discharge from ear: no Associated symptoms ear: headache and other (Sore throat) Treatment prior to arrival: none Related Data Previous Rx's Medication Instructions Recorded polyethylene glycol 3350 17 gram 17 g PO BID #30 ea 08/21/20 oral powder packet (Miralax) cefuroxime axetil 250 mg tablet 500 mg PO BID 7 Days #28 tab 12/13/20 diazepam 5 mg tablet (Valium) 5 mg PO TID PRN #10 tab 12/13/20 ibuprofen 600 mg tablet 600 mg PO Q6H PRN #30 tab 12/13/20 lidocaine 4 % topical patch 1 patch TOPICAL DAILY PRN #10 ea 12/13/20 ondansetron 4 mg disintegrating 4 mg PO Q8H PRN #20 tab 12/13/20 tablet amoxicillin 875 mg-potassium 1 tab PO Q12H 10 Days #20 tab 06/10/21 clavulanate 125 mg tablet (Augmentin) dexamethasone 6 mg tablet 6 mg PO DAILY 4 Days #4 tab 06/10/21 lidocaine HCl 2 % mucosal solution 10 ml MUCOUS MEMBRANE QID PRN #200 06/10/21 (Lidocaine Viscous) ml Allergies Allergy/AdvReac Type Severity Reaction Status Date / Time No Known Allergies Allergy Verified 04/04/21 20:47 [No Known Allergies*] Review of Systems Review of Systems: Constitutional: No Fever, No Chills ENT/Mouth: Positive Ear Pain, No Hoarseness, positive sore throat Eyes: No Eye Pain, No Swelling, No Redness, No Foreign Body Cardiovascular: No Chest Pain, No SOB Respiratory: No Cough, No Dyspnea Gastrointestinal: No Nausea, No Vomiting, No Diarrhea, No abdominal Pain Genitourinary: No Dysuria, No Hematuria Musculoskeletal: No joint pain, No Myalgias, No Joint Swelling Skin: No Skin lacerations, No rash Neuro: No Weakness, No Numbness, No Paresthesias, No Loss of Consciousness, No Dizziness, No Headache Psych: No Anxiety/Panic, No Depression Heme/Lymph: no easy bruising, no Lymphadenopathy Endocrine: No Polyuria, No Polydipsia Yes all other systems are reviewed and are negative [facility] Past Medical History Attestation statement: The following information was validated with the patient. Source: old records reviewed Medical History Anemia Asthma Non-alcoholic fatty liver disease Surgical History Hx of lymph node excision Social History Social History Advance Directives: No Physical Exam Vital Signs: Vital Signs: Last Vital Signs Temp 97.2 F 06/10/21 22:33 Pulse 104 H 06/10/21 22:33 Resp 17 06/10/21 22:33 BP 137/82 06/10/21 22:33 Pulse Ox 100 06/10/21 22:33 Body Mass Index 39.9 Appearance: Alert. Oriented X3. No acute distress. Head: Normal external exam. Normocephalic. Atraumatic. No [place] signs noted. No raccoon eyes noted Eyes: PERRLA. EOMI. Conjunctiva and sclera normal. Eyelids normal. ENT: TM's erythematous and bulging. Pharynx erythematous, tonsillar erythema and swelling Centor scale 3. Uvula midline. No mastoid tenderness noted. Moist mucous membranes. No trismus noted. No drooling noted. No muffled voice noted. Neck: Normal inspection. Neck supple. No adenopathy. No cervical vertebral tenderness or step-offs noted. No nuchal rigidity. CVS: Normal heart rate and rhythm. Heart sound normal. No murmurs noted. Pulses equal to all extremities. Respiratory: No respiratory distress. Painless inspiration. Breath sounds normal. No wheezes/rales/rhonchi noted. Chest nontender. No accessory muscle usage noted or decreased air movement noted. Abdomen: Soft and nontender. Bowel sounds normal in all 4 quadrants. No distention noted. No organomegaly noted. No visible injury noted. Back: No CVA tenderness. Full range of motion noted. Skin: Skin warm and dry. Normal skin color. Normal skin turgor. No rashes/lesions/lacerations noted. Extremities: No lower extremity edema. Extremities exhibit normal range of motion. Extremities nontender. Neuro: cranial nerves 2-12 intact, no focal neural deficits, strength 5/5 to all extremities, No motor deficit. No sensory deficit. Course Course Course Narrative: 21-year-old female presents with bilateral ear pain and swollen tonsils. Does not present with the cough. Has a history of tonsillitis with admission. At this time patient is afebrile but appears nontoxic. Will treat for otitis media and pharyngitis with Augmentin and dexamethasone. Patient will continue to monitor if she notices that it is getting more difficult to swallow she will present back to the emergency department immediately. Patient verbalized understanding of and agrees to plan of care discharge home. Will refer to ENT as outpatient. MDM - Ear MDM Narrative Medical decision making narrative: Pharyngitis Differential Diagnosis Differential diagnosis: Likely otitis externa, otitis media and ruptured TM Medical Records Attestation: I reviewed the patient's medical records. Lab Data Attestation: I reviewed the patient's lab results. Labs: Lab Results 06/10/21 06/10/21 Range/Units 22:50 22:50 COVID-19 (RAVEN) Negative (Negative) COVID-19 Clin Com See Note S. pyogenes GrpA NABIL Negative (Negative) Discharge Plan Discharge Clinical Impression: Otitis media Qualifiers: Otitis media type: suppurative Chronicity: acute Laterality: bilateral Recurrence: recurrent Spontaneous tympanic membrane rupture: without spontaneous rupture Qualified Code(s): H66.006 - Acute suppurative otitis media without spontaneous rupture of ear drum, recurrent, bilateral Pharyngitis Qualifiers: Pharyngitis/tonsillitis etiology: unspecified etiology Qualified Code(s): J02.9 - Acute pharyngitis, unspecified Patient Disposition: Home, Self-Care Instructions: Pharyngitis (ED), Ear Infection (ED) Additional Instructions: You were evaluated for bilateral ear infection and pharyngitis. Please take Augmentin as directed for the next 10 days. Please take dexamethasone for the next 4 days. Follow-up with ENT. I referred you to Dr. Ramos. Thank you for choosing this emergency department for evaluation. Please follow-up with primary care physician as needed. Return to the emergency department for any new, concerning, or worsening symptoms. Prescriptions: New amoxicillin-pot clavulanate [Augmentin] 875-125 mg tablet 1 tab PO Q12H 10 Days Qty: 20 RF: 0 dexamethasone 6 mg tablet 6 mg PO DAILY 4 Days Qty: 4 RF: 0 lidocaine HCl [Lidocaine Viscous] 2 % solution 10 ml mucous membrane QID PRN (Reason: pain) Qty: 200 RF: 0 No Action cefuroxime axetil 250 mg tablet 500 mg PO BID 7 Days Qty: 28 RF: 0 lidocaine 4 % adhesive patch,medicated 1 patch topical DAILY PRN (Reason: pain) Qty: 10 RF: 0 ibuprofen 600 mg tablet 600 mg PO Q6H PRN (Reason: pain) Qty: 30 RF: 0 ondansetron 4 mg tablet,disintegrating 4 mg PO Q8H PRN (Reason: nausea and vomiting) Qty: 20 RF: 0 diazepam [Valium] 5 mg tablet 5 mg PO TID PRN (Reason: muscle spasm) Qty: 10 RF: 0 polyethylene glycol 3350 [Miralax] 17 gram powder in packet 17 g PO BID Qty: 30 RF: 0 Referrals: Dylan Ramos [Physician] - 2 days (Recurrent tonsillitis) Stand Alone Forms: Work/School Release Interventions: ED Discharge Assessment Last Done: 06/10/21 23:24 Discharge Date/Time: 06/10/21 23:26
[2021-06-10 22:33] VITALS: BP 137/82; PULSE 104; RESP 17; TEMP 36.2; O2SAT 100; BMI 39.9
[2021-06-10 23:03] LABS: Strep A Nucleic Acid Negative (Negative)
[2021-06-10 23:08] LABS: COVID-19 Test Negative (Negative); IDNOW Serial# 9DD0AD1C
[2021-06-10] MEDS: dexAMETHasone 6 MG TABLET PO (23:11)
[2021-06-10] MEDS: Ibuprofen 600 MG TABLET PO (23:11)
[2021-06-10] MEDS: Amoxicillin/Potassium Clav 875 MG TABLET PO (23:12)
== END 2021-06-10 23:26 | disposition home or self-care (01) ==
PROVIDERS: Nurse Practitioner Family; Emergency Provider Internal Medicine; PCP Internal Medicine
DX: H66.006 Acute suppurative otitis media without spontaneous rupture of ear drum, recurrent, bilateral (principal); J02.9 Acute pharyngitis, unspecified; J45.909 Unspecified asthma, uncomplicated; Z20.822 Contact with and (suspected) exposure to COVID-19
CPT/HCPCS: 36415; 87635; 87651; 99283; J8540

== ENCOUNTER 2021-10-22 17:26 | Emergency (ER) | payer OTHER, MEDICAID, SELFPAY ==
[2021-10-22 17:47] VITALS: BP 157/92; PULSE 105; RESP 18; TEMP 37.4; O2SAT 98; BMI 36.9
[2021-10-22 18:43] VITALS: BP 137/80; PULSE 90; RESP 16; O2SAT 98
--- NOTE | 2021-10-22 19:10 | ED.GENADULT ---
HPI - General Adult General Chief complaint: General Medical Stated complaint: Second Covid vax t-1 arm pain dizzy nauseas Time Seen by Provider: 10/22/21 18:41 Source: patient Mode of arrival: ambulatory Limitations: no limitations History of Present Illness HPI narrative: 21 yo female no pmhx presents to the emergency department complaints of left arm/armpit pain, headache, nausea status post COVID vaccine. Patient got her Pfizer 2nd dose yesterday she reports that her left arm is in a lot of pain, hurts when she lies on it, she describes as a soreness/pain, worse with movement and worse when applying pressure to the area. She also reports nausea and a generalized headache that was gradual in onset without vision changes, she tells me she is slightly dizzy described as disequilibrium however she says this started when the headache started. She is not on blood thinners. She has had no trauma to the head. She tells me that the last time she got her COVID shot she experienced fatigue, headache just like when she has now however she did not have the arm pain. She tells me the arm pain is severe. Denies photophobia, vision changes, head trauma, vomiting, chest pain, shortness of breath. Onset (ago): day(s) (2) Location: left and upper extremity Radiation: non-radiation Severity: severe Severity scale (1-10): 10 Quality: aching and constant Pain Consistency: constant Relieving factors: none Exacerbating factors: movement and other (weight bearing ) Associated symptoms: headaches and other (dizziness ) Treatments prior to arrival: none Related Data Previous Rx's Medication Instructions Recorded polyethylene glycol 3350 17 gram 17 g PO BID #30 ea 08/21/20 oral powder packet (Miralax) cefuroxime axetil 250 mg tablet 500 mg PO BID 7 Days #28 tab 12/13/20 diazepam 5 mg tablet (Valium) 5 mg PO TID PRN #10 tab 12/13/20 ibuprofen 600 mg tablet 600 mg PO Q6H PRN #30 tab 12/13/20 lidocaine 4 % topical patch 1 patch TOPICAL DAILY PRN #10 ea 12/13/20 ondansetron 4 mg disintegrating 4 mg PO Q8H PRN #20 tab 12/13/20 tablet amoxicillin 875 mg-potassium 1 tab PO Q12H 10 Days #20 tab 06/10/21 clavulanate 125 mg tablet (Augmentin) dexamethasone 6 mg tablet 6 mg PO DAILY 4 Days #4 tab 06/10/21 lidocaine HCl 2 % mucosal solution 10 ml MUCOUS MEMBRANE QID PRN #200 06/10/21 (Lidocaine Viscous) ml Allergies Allergy/AdvReac Type Severity Reaction Status Date / Time No Known Allergies Allergy Verified 04/04/21 20:47 [No Known Allergies*] Review of Systems Review of Systems: Constitutional : No Weight loss, No Fever, No Chills, No Fatigue, No Malaise ENT/Mouth : No sore throat, No Rhinorrhea Eyes: No Eye Pain, No Swelling, No Redness Cardiovascular : No Chest Pain, No SOB, No Dyspnea on Exertion, No Orthopnea, No Edema, No Palpitations Respiratory : No Cough, No Sputum, No Wheezing Gastrointestinal : No Nausea, No Vomiting, No Diarrhea, No Constipation, No abdominal Pain, No Hematochezia, No Melena Genitourinary : No Dysuria, No Urinary Frequency, No Hematuria, Musculoskeletal : No joint pain, No Myalgias, No Joint Swelling, + extremity pain Skin : No Skin Lesions, No rash Neuro : No Weakness, No Numbness, + Dizziness, + Headache Psych : No Anxiety/Panic, No Depression All other systems reviewed and are negative Yes all other systems are reviewed and are negative [facility] Past Medical History Attestation statement: The following information was validated with the patient. Source: old records reviewed and nursing notes reviewed Medical History Anemia Asthma Non-alcoholic fatty liver disease Surgical History Hx of lymph node excision Social History Social History Advance Directives: No Advance Directives Information Provided: Yes Physical Exam ED Vital Signs: Vital Signs - 24 hr 10/22/21 17:47 10/22/21 18:43 Temperature 99.3 F Pulse Rate 105 H 90 Respiratory Rate 18 16 Blood Pressure 157/92 H 137/80 Pulse Oximetry 98 98 BMI result Body Mass Index 36.9 VSS Appearance: Alert.? Oriented X3.? No acute distress.? Head: Normocephalic, atraumatic, no step-offs or deformities Eyes: Pupils equal, round and reactive to light.? Extraocular movements intact. ENT: Pharynx normal.? Neck: Normal inspection.? Neck supple.? CVS: Normal heart rate and rhythm.? Pulses normal.? Respiratory: No respiratory distress.? Breath sounds normal.? Abdomen: Soft and nontender.? Skin: Skin warm and dry.? Normal skin color.? Normal skin turgor.? Extremities: No lower extremity edema.? No calf ttp. 5/5 strength to bilateral upper and lower extremities full range of motion to bilateral upper extremities. Bilateral radial pulses 2+ equal bilateral. Capillary refill to bilateral upper extremities less than 2 seconds. Back: No midline tenderness, no C-spine tenderness, full range of motion, no CVA tenderness bilaterally Neuro: Oriented X 3.? No motor deficit.? No sensory deficit. CN 2-12 intact normal [id number], [id number], normal tandem gait. Course Reevaluation(s) Reevaluation #1: Slight improvement after Tylenol, and Zofran. Patient has not vomited while here. Has been on her phone. At this time I feel comfortable with discharge with PCP follow-up. Advised her to return with new or worsening symptoms. Time: 20:33 Medical Decision Making [facility] Narrative Medical decision making narrative: 1912 21 yo f pmhx asthma, anxiety presents with adverse vaccine reaction reporting severe left arm pain, nausea, headache, disequilibrium since yesterday Physical examination benign. Neuro exam within normal limits. Cerebellar function intact. Unlikely that this is a posterior stroke. Headache feels like her typical unlikley ICH or CVA. Likely vaccine reaction. This time is to give patient Zofran and meclizine. Medical Records Medical records reviewed: Yes I reviewed the patient's medical records. Lab Data Lab results reviewed: Yes I reviewed the patient's lab results. Critical Care Time Critical Care Time Critical Care Time: No Discharge Plan Discharge Clinical Impression: Vaccine reaction Patient Disposition: Home, Self-Care Additional Instructions: Take your medications as prescribed. If you were prescribed antibiotics today, it is important that you take your medication to their entirety, do not skip any doses, do not finish them early. Follow-up with your primary care provider this week. Return to the emergency department with new or worsening symptoms. Such as dizziness, vision changes, headache, nausea, vomiting, abdominal pain, chest pain, shortness of breath, lethargy. In case of emergency call 911 Prescriptions: No Action cefuroxime axetil 250 mg tablet 500 mg PO BID 7 Days Qty: 28 0RF lidocaine 4 % adhesive patch,medicated 1 patch topical DAILY PRN (Reason: pain) Qty: 10 0RF Rx Instructions: may leave on for up to 12 hrs ibuprofen 600 mg tablet 600 mg PO Q6H PRN (Reason: pain) Qty: 30 0RF ondansetron 4 mg tablet,disintegrating 4 mg PO Q8H PRN (Reason: nausea and vomiting) Qty: 20 0RF diazepam [Valium] 5 mg tablet 5 mg PO TID PRN (Reason: muscle spasm) Qty: 10 0RF polyethylene glycol 3350 [Miralax] 17 gram powder in packet 17 g PO BID Qty: 30 0RF amoxicillin-pot clavulanate [Augmentin] 875-125 mg tablet 1 tab PO Q12H 10 Days Qty: 20 0RF dexamethasone 6 mg tablet 6 mg PO DAILY 4 Days Qty: 4 0RF lidocaine HCl [Lidocaine Viscous] 2 % solution 10 ml mucous membrane QID PRN (Reason: pain) Qty: 200 0RF Rx Instructions: Gargle and spit Stand Alone Forms: Work/School Release Interventions: ED Discharge Assessment Last Done: 10/22/21 21:06 Discharge Date/Time: 10/22/21 21:06
[2021-10-22] MEDS: Ondansetron ODT 4 MG TAB.RAPDIS TRANSLINGU (20:12)
[2021-10-22] MEDS: Acetaminophen 325 MG TABLET 975 MG PO (20:12)
== END 2021-10-22 21:06 | disposition home or self-care (01) ==
PROVIDERS: Emergency Provider Emergency Medicine; PCP Internal Medicine
DX: M79.602 Pain in left arm (principal); R51.9 Headache, unspecified; R11.0 Nausea; T50.B95A Adverse effect of other viral vaccines, initial encounter; Y92.9 Unspecified place or not applicable
CPT/HCPCS: 99283; 99284

== ENCOUNTER 2022-02-18 22:54 | Emergency (ER) | payer OTHER, MEDICAID, SELFPAY ==
[2022-02-19 00:21] VITALS: BP 155/95; PULSE 71; RESP 15; TEMP 36.8; O2SAT 99; BMI 38.4
[2022-02-19 00:42] LABS: MANUAL DIFF FLAG NO
[2022-02-19 00:43] LABS: Basophils Percent Auto 0.4 % (0-2); Eosinophils Absolute Auto 0.1 X10*3/uL (0.0-0.4); Eosinophils Percent Auto 0.7 % (0-4); Hematocrit 38.1 % (37.0-47.0); Imm Gran Abs Auto 0.04 X10*3/uL (0.00-0.03); Imm Gran Pct Auto 0.4 % (0.0-0.4); Lymphocytes Absolute Auto 3.9 X10*3/uL (1.2-4.9); Lymphocytes Percent Auto 35.9 % (20-40); Mean Corpuscular HGB Conc 31.5 g/dl (31.0-35.0); Mean Corpuscular Hemoglobin 26.5 pg (27.0-33.0); Mean Corpuscular Volume 84.1 fL (80.0-98.0); Mean Platelet Volume 10.8 fL (9.4-12.3); Monocytes Absolute Auto 0.8 X10*3/uL (0.1-1.2); Monocytes Percent Auto 7.7 % (2-11); Neutrophils Absolute Auto 5.9 x10*3/uL (2.0-8.3); Neutrophils Percent Auto 54.9 % (45-73); Platelet Count 387 X10*3/uL (160-400); Red Blood Count 4.53 X10*6/uL (4.20-5.50); Red Cell Distribution Width 14.1 % (11.0-16.0); White Blood Count 10.8 X10*3/uL (4.8-10.8)
[2022-02-19 00:44] LABS: Appearance Urine CLEAR; Color Urine YELLOW; Glucose Urine UA NEG (NEG); Leukocyte Esterase Urine NEG (NEG); Nitrite Urine NEG (NEG); PH 7.5 (5.0-8.0); Specific Gravity - Urine 1.015 (1.005-1.025); Urine Blood NEG (NEG); Urine Ketones 5 MG/DL (NEG); Urine Protein NEG (NEG-TRACE)
[2022-02-19 00:45] LABS: UPreg QC Valid YES; Urine Pregnancy NEGATIVE (NEGATIVE)
[2022-02-19 01:02] LABS: Alanine Aminotransferase 16 U/L (0-31); Albumin Level 4.1 g/dL (3.5-5.0); Alkaline Phosphatase 66 U/L (39-117); Anion Gap 11 (12-20); Aspartate Amino Transferase 15 U/L (5-31); Bilirubin Total 0.2 mg/dL (0.0-1.0); Blood Urea Nitrogen 12 mg/dL (9-16); Calcium 8.9 mg/dL (8.4-10.2); Carbon Dioxide 25 mmol/L (22-29); Chloride 107 mmol/L (96-108); Creatinine Clr Calc Pharmacy 111.9; Estimated Glomerular Filt Rate > 60; Glucose Random 81 mg/dL (60-115); Sodium 139 mmol/L (135-145); Total Protein 7.2 g/dL (6.5-8.0)
[2022-02-19 01:06] VITALS: RESP 16
--- NOTE | 2022-02-19 01:27 | ED.FEMALEGU ---
HPI - Female Genitourinary General Chief complaint: Urogenital-Female Stated complaint: UTI, spread to possible kidney infection Time Seen by Provider: 02/18/22 23:58 Source: patient Mode of arrival: ambulatory Limitations: no limitations History of Present Illness HPI Narrative: patient was concerned that she was holding her urine for too long, then had pain with urination. Now with lower back pain. MD elicited complaint: dysuria Onset (ago): day(s) Severity: mild Quality of pain: sharp Consistency: constant Vaginal discharge: none Vaginal bleeding: none Urinary symptoms: Dysuria Related Data Previous Rx's Medication Instructions Recorded polyethylene glycol 3350 17 gram 17 g PO BID #30 ea 08/21/20 oral powder packet (Miralax) cefuroxime axetil 250 mg tablet 500 mg PO BID 7 days #28 tabs 12/13/20 diazepam 5 mg tablet (Valium) 5 mg PO TID PRN muscle spasm #10 12/13/20 tabs ibuprofen 600 mg tablet 600 mg PO Q6H PRN pain #30 tabs 12/13/20 lidocaine 4 % topical patch 1 patch topical DAILY PRN pain #10 12/13/20 ea ondansetron 4 mg disintegrating 4 mg PO Q8H PRN nausea and 12/13/20 tablet vomiting #20 tabs amoxicillin 875 mg-potassium 1 tab PO Q12H 10 days #20 tabs 06/10/21 clavulanate 125 mg tablet (Augmentin) dexamethasone 6 mg tablet 6 mg PO DAILY 4 days #4 tabs 06/10/21 lidocaine HCl 2 % mucosal solution 10 ml mucous membrane QID PRN pain 06/10/21 (Lidocaine Viscous) #200 mL naproxen 500 mg tablet (Naprosyn) 500 mg PO BID #20 tabs 02/19/22 Allergies Allergy/AdvReac Type Severity Reaction Status Date / Time No Known Allergies Allergy Verified 04/04/21 20:47 [No Known Allergies*] Review of Systems Constitutional: Constitutional: Reports no additional constitutional complaints Eyes: Eyes: Reports no additional eye complaints ENT: Denies dizziness Cardiovascular: Cardiovascular: Reports no additional cardiovascular complaints Respiratory: Respiratory: Reports as per HPI Gastrointestinal: Gastrointestinal: Reports no additional gastrointestinal complaints Genitourinary: Genitourinary: Reports no additional female genitourinary complaints Musculoskeletal: Musculoskeletal: Reports no additional musculoskeletal complaints Integumentary/Breasts: Skin/Breast: Denies rash Neurologic: Reports system reviewed and no additional complaints, except as documented, Denies dizziness and Denies Sensory deficit (Neuro) Psychiatric: Psychiatric: Denies anxiety [facility] Past Medical History Medical History Anemia Asthma Non-alcoholic fatty liver disease Surgical History Hx of lymph node excision Social History Social History Patient : No Physical Exam Vital Signs: Vital Signs: Last Vital Signs Temp 98.3 F 02/19/22 00:21 Pulse 71 02/19/22 00:21 Resp 16 02/19/22 01:06 BP 155/95 H 02/19/22 00:21 Pulse Ox 99 02/19/22 00:21 O2 Del Method 02/19/22 00:21 BMI result Body Mass Index 38.4 Const: General: healthy appearing Nutritional Appearance: obese Orientation/consciousness: oriented to person and patient oriented x3 Limitations: no limitations HEENT: Head: Yes normal to inspection Ears: external ears normal General nose exam: Normal external nose present Mouth: Normal oral and palatal mucosa present and oropharynx normal Throat: Yes posterior oropharynx normal Eyes: General: appearance normal, both eyes and all related structures Neck: Other: supple Neck: Yes normal visual inspection Chest: Chest palpation & inspection: normal inspection of the chest Resp: Auscultation: clear to auscultation bilaterally Cardio: Jugular venous distension: no JVD Rate: regular rate Rhythm: regular rhythm Heart sounds: S1 normal heart sound present and S2 normal heart sound present GI: Inspection: Yes normal to inspection Palpation (GI): Soft to palpation, nontender and No hepatosplenomegaly present Auscultation: normal bowel sounds Back/Spine/Pelvis: Other: Patient with bilateral SI joint pain. Skin: General skin exam: no rashes or lesions noted Neuro: General: oriented to person and patient oriented x3 Cranial nerves: Yes CN's II-XII intact bilaterally Motor exam (neuro): 5/5 motor strength present throughout Sensory Exam: No Sensory deficit (Neuro) Extrem: General: Yes normal to inspection Psych: Appearance: grossly normal Course Reevaluation(s) Reevaluation #1: patient with SI joint tenderness bilaterally with no evidence of infection. Will dc home Time: 01:33 MDM - Female Genitourinary Lab Data Result diagrams: 02/19/22 00:36 02/19/22 00:36 Labs: Lab Results 02/19/22 02/19/22 02/19/22 Range/Units 00:36 00:36 00:36 WBC 10.8 (4.8-10.8) X10*3/uL RBC 4.53 (4.20-5.50) X10*6/uL Hgb 12.0 (12.0-16.0) g/dl Hct 38.1 (37.0-47.0) % MCV 84.1 (80.0-98.0) fL MCH 26.5 L (27.0-33.0) pg MCHC 31.5 (31.0-35.0) g/dl RDW 14.1 (11.0-16.0) % Plt Count 387 (160-400) X10*3/uL MPV 10.8 (9.4-12.3) fL Immature Gran % (Auto) 0.4 (0.0-0.4) % Neut % (Auto) 54.9 (45-73) % Lymph % (Auto) 35.9 (20-40) % [place] % (Auto) 7.7 (2-11) % Eos % (Auto) 0.7 (0-4) % Baso % (Auto) 0.4 (0-2) % Lymph # (Auto) 3.9 (1.2-4.9) X10*3/uL [place] # (Auto) 0.8 (0.1-1.2) X10*3/uL Eos # (Auto) 0.1 (0.0-0.4) X10*3/uL Baso # (Auto) 0.0 (0.0-0.2) X10*3/uL Abs Immat Gran (auto) 0.04 H (0.00-0.03) X10*3/uL Absolute Neuts (auto) 5.9 (2.0-8.3) x10*3/uL Absolute Nucleated RBC 0.000 (0.0-0.012) X10*3/uL Nucleated RBC % (auto) 0.0 (0.0-0.2) /100WBC Sodium 139 (135-145) mmol/L Potassium 4.0 (3.3-5.1) mmol/L Chloride 107 (96-108) mmol/L Carbon Dioxide 25 (22-29) mmol/L Anion Gap 11 L (12-20) BUN 12 (9-16) mg/dL Creatinine 1.09 (0.5-1.4) mg/dL Estim Creat Clear Calc 111.9 Estimated GFR > 60 Random Glucose 81 (60-115) mg/dL Calcium 8.9 (8.4-10.2) mg/dL Total Bilirubin 0.2 (0.0-1.0) mg/dL AST 15 (5-31) U/L ALT 16 (0-31) U/L Alkaline Phosphatase 66 (39-117) U/L Total Protein 7.2 (6.5-8.0) g/dL Albumin 4.1 (3.5-5.0) g/dL Urine Color YELLOW Urine Appearance CLEAR Urine pH 7.5 (5.0-8.0) Ur Specific Maple 1.015 (1.005-1.025) Urine Protein NEG (NEG-TRACE) MG/DL Urine Glucose (UA) NEG (NEG) MG/DL Urine Ketones 5 (NEG) MG/DL Urine Blood NEG (NEG) Urine Nitrite NEG (NEG) Ur Leukocyte Esterase NEG (NEG) Urine Test (NEGATIVE) 02/19/22 Range/Units 00:36 WBC (4.8-10.8) X10*3/uL RBC (4.20-5.50) X10*6/uL Hgb (12.0-16.0) g/dl Hct (37.0-47.0) % MCV (80.0-98.0) fL MCH (27.0-33.0) pg MCHC (31.0-35.0) g/dl RDW (11.0-16.0) % Plt Count (160-400) X10*3/uL MPV (9.4-12.3) fL Immature Gran % (Auto) (0.0-0.4) % Neut % (Auto) (45-73) % Lymph % (Auto) (20-40) % [place] % (Auto) (2-11) % Eos % (Auto) (0-4) % Baso % (Auto) (0-2) % Lymph # (Auto) (1.2-4.9) X10*3/uL [place] # (Auto) (0.1-1.2) X10*3/uL Eos # (Auto) (0.0-0.4) X10*3/uL Baso # (Auto) (0.0-0.2) X10*3/uL Abs Immat Gran (auto) (0.00-0.03) X10*3/uL Absolute Neuts (auto) (2.0-8.3) x10*3/uL Absolute Nucleated RBC (0.0-0.012) X10*3/uL Nucleated RBC % (auto) (0.0-0.2) /100WBC Sodium (135-145) mmol/L Potassium (3.3-5.1) mmol/L Chloride (96-108) mmol/L Carbon Dioxide (22-29) mmol/L Anion Gap (12-20) BUN (9-16) mg/dL Creatinine (0.5-1.4) mg/dL Estim Creat Clear Calc Estimated GFR Random Glucose (60-115) mg/dL Calcium (8.4-10.2) mg/dL Total Bilirubin (0.0-1.0) mg/dL AST (5-31) U/L ALT (0-31) U/L Alkaline Phosphatase (39-117) U/L Total Protein (6.5-8.0) g/dL Albumin (3.5-5.0) g/dL Urine Color Urine Appearance Urine pH (5.0-8.0) Ur Specific Maple (1.005-1.025) Urine Protein (NEG-TRACE) MG/DL Urine Glucose (UA) (NEG) MG/DL Urine Ketones (NEG) MG/DL Urine Blood (NEG) Urine Nitrite (NEG) Ur Leukocyte Esterase (NEG) Urine Test NEGATIVE (NEGATIVE) Discharge Plan Discharge Clinical Impression: Back pain Patient Disposition: Home, Self-Care Instructions: Back Pain (ED) Prescriptions: New naproxen [Naprosyn] 500 mg tablet 500 mg PO BID Qty: 20 0RF No Action cefuroxime axetil 250 mg tablet 500 mg PO BID 7 Days Qty: 28 0RF lidocaine 4 % adhesive patch,medicated 1 patch topical DAILY PRN (Reason: pain) Qty: 10 0RF Rx Instructions: may leave on for up to 12 hrs ibuprofen 600 mg tablet 600 mg PO Q6H PRN (Reason: pain) Qty: 30 0RF ondansetron 4 mg tablet,disintegrating 4 mg PO Q8H PRN (Reason: nausea and vomiting) Qty: 20 0RF diazepam [Valium] 5 mg tablet 5 mg PO TID PRN (Reason: muscle spasm) Qty: 10 0RF polyethylene glycol 3350 [Miralax] 17 gram powder in packet 17 g PO BID Qty: 30 0RF amoxicillin-pot clavulanate [Augmentin] 875-125 mg tablet 1 tab PO Q12H 10 Days Qty: 20 0RF dexamethasone 6 mg tablet 6 mg PO DAILY 4 Days Qty: 4 0RF lidocaine HCl [Lidocaine Viscous] 2 % solution 10 ml mucous membrane QID PRN (Reason: pain) Qty: 200 0RF Rx Instructions: Gargle and spit Referrals: Physician,Unknown J [Primary Care Provider] - 1 week
== END 2022-02-19 01:54 | disposition home or self-care (01) ==
LOC: HO.ED 02-19 01:38
PROVIDERS: Emergency Provider Emergency Medicine
DX: M54.9 Dorsalgia, unspecified (principal); R30.0 Dysuria; J45.909 Unspecified asthma, uncomplicated
CPT/HCPCS: 36415; 80053; 81003; 81025; 85025; 99283; 99284

== ENCOUNTER 2024-09-25 23:02 | Emergency (ER) | payer SELFPAY ==
--- NOTE | 2024-09-25 | ECG_ITS ---
Test Reason : CP Blood Pressure : */* mmHG Vent. Rate : 97 BPM Atrial Rate : 97 BPM P-R Int : 124 ms QRS Dur : 78 ms QT Int : 338 ms P-R-T Axes : 32 8 22 degrees QTcB Int : 429 ms Normal sinus rhythm Cannot rule out Anterior infarct , age undetermined , more likely from body habitus and lead placement Abnormal ECG When compared with ECG of 13-Dec-2020 00:42, No significant change was found Referred By: Generic ED Physician Electronically Signed By: NAREN GARY
--- NOTE | ~2024-09-25 | XR_ITS ---
CLINICAL HISTORY: cough sob cp 1 view chest x-ray Comparison: CR/WI - XR CHEST 1V - 04/04/21 21:04 EDT Findings: The lungs are clear. Heart size is normal. No acute fracture. IMPRESSION: 1. No acute findings. This document has been electronically signed by: Tyrese Hatch MD on 09/26/2024 00:11:03
[2024-09-25 23:08] VITALS: BP 164/83; PULSE 98; RESP 20; TEMP 36.9; O2SAT 100; BMI 48.5
[2024-09-26 00:41] LABS: IDNOW Serial# 6674DD1D
[2024-09-26 00:42] LABS: Strep A Nucleic Acid Negative (Negative)
[2024-09-26 01:08] LABS: Influenza A PCR NEGATIVE (Negative); Influenza B PCR NEGATIVE (Negative); Resp Syncy Virus RNA Qual PCR NEGATIVE (Negative); SARS COV2 PCR INHOUSE NEGATIVE (Negative)
--- OUTSIDE RECORDS SUMMARY | 2024-09-26 01:20 | XMS_ITS | Clinical Summary ---
Author Organization [facility] ity Address [address] [place] [address] Care Team Providers Care Grievance Manager Name Role Phone William Romero MD Primary Care Provider [phone] Social History Tobacco Use Types Packs/Day Years Used Date Smoking Tobacco: Never Assessed Sex and Gender Information Value Date Recorded Sex Assigned at Not on file Gender Identity Not on file Sexual Orientation Not on file Last Filed Vital Signs Vital Sign Reading Time Taken Comments Blood Pressure 128/76 12/24/2022 1:09 PM EDT Sit ting L Arm Pulse 78 12/24/2022 1:09 PM EDT Temperature - - Respiratory Rate - - Oxygen Saturation - - Inhaled Oxygen Concentration - - Weight 154 kg (340 lb) 12/24/2022 1:09 PM EDT Height 177.8 cm (5' 10 ) 12/24/2022 1:09 PM EDT Body Mass Index 48.78 12/24/2022 1:09 PM EDT Plan of Treatment Health Maintenance Due Date Last Done Comments Gonorrhea/Chlamydia Screening 2000 HPV Vaccines (1 - 3-dose series) 2015 DTaP,Tdap,and Td Vaccines (1 - Tdap) 2019 Hepatitis B Vaccines (1 of 3 - 19+ 3-dose series) 2019 Cervical Cancer Screening: P ap Smear 2021 Depression Screening 07/28/2022 HIV Screening 07/28/2022 Hepatitis C Screening 07/28/2022 Social Influencers of Health Screening 07/28/2022 COVID-19 Vaccine (2023-2 5 season) 2024 Influenza Vaccine (#1) 2024 HIB Vaccines Aged Out No longer eligi ble based on patient's age to complete this topic Hepatitis A Vaccines Aged Out No long er eligible based on patient's age to complete this topic IPV Vaccines Aged Out No longer eligi ble based on patient's age to complete this topic MMR Vaccines Aged Out No longer eligi ble based on patient's age to complete this topic Meningococcal ACWY Vaccine Aged Out N o longer eligible based on patient's age to complete this topic Pneumococcal Vaccine: Pediat rics (0 to 5 Years) and At-Risk Patients (6 to 64 Years) Aged Out No longer eligible b ased on patient's age to complete this topic RSV Immunization Patients Un ronak 20 months Aged Out No longer eligible b ased on patient's age to complete this topic Varicella Vaccines Aged Out No longer eligible based on patient's age to complete this topic Care Teams Grievance Manager Relationship Specialty Start Date End Date William Romero MD PCP - General Internal Medicine 06/12/21
--- NOTE | 2024-09-26 01:32 | ED.URI ---
HPI - URI/Sore Throat General Chief Complaint: Upper Respiratory Symptoms Stated Complaint: chest pain Time Seen by Provider: 09/26/24 01:27 History of Present Illness ED Provider: Chaim Keyes MD HPI Narrative: Mel is 24-year-old female with a history of mild asthma no asthma complications or hospitalizations in the past. She reports 3 days of coughing with central chest discomfort after coughing. No hemoptysis no leg edema. She denies abdominal pain nausea vomiting. She has felt some malaise Related Data Previous Rx's ?Medication ?Instructions ?Recorded polyethylene glycol 3350 17 gram 17 g PO BID #30 ea 08/21/20 oral powder packet (Miralax) cefuroxime axetil 250 mg tablet 500 mg (2 x 250 mg) PO BID 7 days 12/13/20 #28 tabs diazepam 5 mg tablet (Valium) 5 mg PO TID PRN muscle spasm #10 12/13/20 tabs ibuprofen 600 mg tablet 600 mg PO Q6H PRN pain #30 tabs 12/13/20 lidocaine 4 % topical patch 1 patch topical DAILY PRN pain #10 12/13/20 ea ondansetron 4 mg disintegrating 4 mg PO Q8H PRN nausea and 12/13/20 tablet vomiting #20 tabs amoxicillin 875 mg-potassium 1 tab PO Q12H 10 days #20 tabs 06/10/21 clavulanate 125 mg tablet (Augmentin) dexamethasone 6 mg tablet 6 mg PO DAILY 4 days #4 tabs 06/10/21 lidocaine HCl 2 % mucosal solution 10 ml mucous membrane QID PRN pain 06/10/21 (Lidocaine Viscous) #200 mL naproxen 500 mg tablet (Naprosyn) 500 mg PO BID #20 tabs 02/19/22 albuterol sulfate 90 mcg/actuation 1 puff inhalation QID PRN 09/26/24 aerosol inhaler shortness of breath or wheezing #6.7 grams prednisone 50 mg tablet 50 mg PO DAILY 3 days #3 tabs 09/26/24 Allergies Allergy/AdvReac Type Severity Reaction Status Date / Time No Known Allergies Allergy Verified 09/25/24 23:10 [No Known Allergies*] PMFSH Past Medical History Medical History Anemia Asthma Non-alcoholic fatty liver disease Surgical History Hx of lymph node excision Social History Social History Advance Directives: No Do you have a plan to hurt others: No Plan Physical Exam Vital Signs: Vital Signs: Last Vital Signs Temp 98.2 F 09/26/24 02:16 Pulse 99 09/26/24 02:16 Resp 20 09/26/24 02:16 BP 147/97 H 09/26/24 02:16 Pulse Ox 100 09/26/24 02:16 O2 Del Method Room Air 09/26/24 02:16 BMI result Body Mass Index 48.5 Const: Other: EXAM: Gen: Alert, awake, well appearing, well hydrated. Head: Atraumatic Eyes: Anicteric, Normal conjunctiva. ENT: Moist mucosa, no pallor. Respiratory: Mild scattered expiratory wheeze no accessory muscle use no distress. Respiratory rate approximately 18 Cardiovascular: Regular rate and rhythm. No murmurs or rub. Well perfused periphery, warm extremities. No edema. Abdominal: Soft, no objective distension. No palpable masses or obvious organomegaly. No focal tenderness, no guarding, no rebound tenderness or other peritoneal findings. : No flank tenderness. Neuro: Alert. Gross movement of all extremities intact. Vital signs: See flowsheet Medications Administered Discontinued Medications Generic Name Dose Route Start Last Admin Trade Name Freq PRN Reason Stop Dose Admin Albuterol Sulfate 2.5 mg 09/26/24 01:31 09/26/24 01:50 Albuterol Sulfate (0.083%) 2.5 Mg/3 Ml Vial.Neb INHALE 09/26/24 01:32 2.5 mg ONCE ONE Administration Guaifenesin/Dextromethorphan 2 tab 09/26/24 01:31 09/26/24 02:02 Guaifenesin Dm 600/30 1 Tab Tab.Er.12h PO 09/26/24 01:32 2 tab ONCE ONE Administration Prednisone 60 mg 09/26/24 01:31 09/26/24 02:02 Prednisone 20 Mg Tablet PO 09/26/24 01:32 60 mg ONCE ONE Administration Medical Decision Making Medical Decision Making MDM Narrative: 24 female history of asthma with upper respiratory symptoms likely viral upper respiratory infection. She has some post-tussive chest discomfort that is atypical. There is no clinical signs of DVT nor any risks or clear symptomatology to suggest PE and I doubt this. She has scant scattered wheezing mild and expiratory no respiratory distress I will start her on prednisone for 3 days and make sure she has albuterol pump at home. One neb here for relief. Supportive therapy at home Lab Data Labs: Lab Results 09/26/24 09/26/24 Range/Units 00:18 00:19 Influenza Type A (PCR) NEGATIVE (Negative) Influenza Type B (PCR) NEGATIVE (Negative) RSV RNA Qual (PCR) NEGATIVE (Negative) SARS-CoV-2 RNA (RT-PCR) NEGATIVE (Negative) S. pyogenes GrpA NABIL Negative (Negative) Radiology Impression Discussion of test interpretation with radiology: I have reviewed the radiologist's reading. Discharge Plan Discharge Clinical Impression: Bronchitis Patient Disposition: Home, Self-Care Instructions: Acute Bronchitis (ED) Additional Instructions: DISCHARGE DIAGNOSES: likely upper respiratory infection and/or bronchitis in the setting of chronic asthma HISTORY OF PRESENTATION: cough and chest pain with coughing EMERGENCY DEPARTMENT COURSE,TESTS, TREATMENTS: While in the ED today you were found to have some wheezing and were given an albuterol treatment. You had an x-ray of your chest with no signs of pneumonia or other complications DISCHARGE MEDICATIONS: we have prescribed you 3 additional days of steroid, prednisone. Take these at night since you initiated this tonight. Avoid any potential allergens or known asthma provoke others FOLLOW-UP: Call your primary or general physician soon as possible to discuss your symptoms, your ED visit and to discuss follow up plans call your PCP for INSTRUCTIONS & RETURN PRECAUTIONS: If any symptoms change first call your primary physician, if it is after-hours your primary doctors office should have a provider precision assembly inspector you can speak with. If the symptoms are severe or very concerning to you then call 911 or return to the ED. Chaim Keyes MD Emergency Physician [facility] Prescriptions: New prednisone 50 mg tablet 50 mg PO DAILY 3 Days Qty: 3 0RF albuterol sulfate 90 mcg/actuation HFA aerosol inhaler 1 puff inhalation QID PRN (Reason: shortness of breath or wheezing) Qty: 6.7 0RF No Action cefuroxime axetil 250 mg tablet 500 mg PO BID 7 Days Qty: 28 0RF lidocaine 4 % adhesive patch,medicated 1 patch topical DAILY PRN (Reason: pain) Qty: 10 0RF Rx Instructions: may leave on for up to 12 hrs ibuprofen 600 mg tablet 600 mg PO Q6H PRN (Reason: pain) Qty: 30 0RF ondansetron 4 mg tablet,disintegrating 4 mg PO Q8H PRN (Reason: nausea and vomiting) Qty: 20 0RF diazepam [Valium] 5 mg tablet 5 mg PO TID PRN (Reason: muscle spasm) Qty: 10 0RF polyethylene glycol 3350 [Miralax] 17 gram powder in packet 17 g PO BID Qty: 30 0RF amoxicillin-pot clavulanate [Augmentin] 875-125 mg tablet 1 tab PO Q12H 10 Days Qty: 20 0RF dexamethasone 6 mg tablet 6 mg PO DAILY 4 Days Qty: 4 0RF lidocaine HCl [Lidocaine Viscous] 2 % solution 10 ml mucous membrane QID PRN (Reason: pain) Qty: 200 0RF Rx Instructions: Gargle and spit naproxen [Naprosyn] 500 mg tablet 500 mg PO BID Qty: 20 0RF Stand Alone Forms: Work/School Release Interventions: ED Discharge Assessment Last Done: 09/26/24 02:16 Discharge Date/Time: 09/26/24 02:17 Print Language: Pashto
[2024-09-26] MEDS: Albuterol Sulfate (0.083%) 2.5 MG/3 ML VIAL.NEB INHALE (01:50)
[2024-09-26 01:54] VITALS: PULSE 101; RESP 18; O2SAT 97
[2024-09-26] MEDS: predniSONE 20 MG TABLET 60 MG PO (02:02)
[2024-09-26] MEDS: guaiFENesin DM 600/30 1 TAB TAB.ER.12H 2 TAB PO (02:02)
[2024-09-26 02:05] VITALS: BP 147/97; PULSE 99; RESP 20; TEMP 36.8; O2SAT 100
[2024-09-26 02:16] VITALS: BP 147/97; PULSE 99; RESP 20; TEMP 36.8; O2SAT 100
== END 2024-09-26 02:17 | disposition home or self-care (01) ==
PROVIDERS: Emergency Provider Emergency Medicine
DX: J40 Bronchitis, not specified as acute or chronic (principal); R07.89 Other chest pain; R05.9 Cough, unspecified; R94.31 Abnormal electrocardiogram [ECG] [EKG]; Z03.818 Encounter for observation for suspected exposure to other biological agents ruled out
CPT/HCPCS: 0241U; 71045; 87651; 93005; 94640; 99284

== ENCOUNTER → 2024-09-25 23:07 | Outpatient (BNV) | payer SELFPAY | PROVIDERS: Emergency Provider Emergency Medicine; Visit Provider Internal Medicine | DX: R94.31 Abnormal electrocardiogram [ECG] [EKG] (principal); R07.9 Chest pain, unspecified | CPT/HCPCS: 93010 ==

== ENCOUNTER → 2024-09-25 23:44 | Outpatient (BNV) | payer OTHER, MEDICAID, SELFPAY | PROVIDERS: Visit Provider Radiology Diagnostic Radiology | DX: R07.9 Chest pain, unspecified (principal) | CPT/HCPCS: 71045 ==

== ENCOUNTER 2025-05-19 15:08 | Outpatient (REF) | payer OTHER, SELFPAY ==
--- OUTSIDE RECORDS SUMMARY | 2025-05-18 14:00 | XMS_ITS | Encounter Summary ---
Author Organization [employer] Address [address] [place] [address] Care Team Providers Care Seat Maker Name Role Phone Sharon Han CNP Primary Care Provider [phone] Encounter Details Date Type Department Care Team (Late st Contact Info) Description 05/18/2025 2:00 PM EDT Office Visit [facility] [address], [place] [phone] Sharon Han CNP [address] [place] [address] Encounter for physical examination (Primary Dx); Menorrhagia with regular cycle; Mild intermittent asthma without complication; Encounter for immunization; Dietary counseling; Exercise counseling; Class 3 severe obesity with serious comorbidity and body mass index (BMI) of 45.0 to 49.9 in adult, unspecified obesity type Social History Tobacco Use Types Packs/Day Years Used Date Smoking Tobacco: Never Passive Smoke Exposure: Never Smokeless Tobacco: Never Tobacco Cessation:Counseling Given: Not Answered Depression Answer Date Recorded Patient Health Questionnaire-9 Score 4 05/18/2025 Patient Health Questionnaire-9 Score 4 05/18/2025 Last PHQ-9: Questionnaire Data Not on file 0 05/18/2025 Housing Stability Answer Date Recorded What is your housing situation today? I have magdaleno roche 05/12/[address] you li ve. Do you have problems with any of the following? None of the above 05/12/2025 Food Insecurity Answer Date Recorded Within the past 12 months, y ou worried that your food would run out before you got money to buy more: Never True 05/12/2025 Within the past 12 months,th e food you bought just didn't last and you didn't have enough money to get more: Never True Transportation Answer Date Recorded In the past 12 months, has l ack of transportation kept you from medical appts, meetings, work or from getting things needed for daily living? No 05/12/2025 Utilities Answer Date Recorded In the past 12 months, has t he electric, gas, oil or water company threatened to shut off services in your home? No 05/12/2025 Depression Answer Date Recorded Patient Health Questionnaire-2 Score 1 05/18/2025 Internet Access Answer Date Recorded Internet Access Q1 Yes 05/12/2025 Internet Access Q2 Not on file 05/12/2025 Comments No Intention Date Recorded No desire to become (finding) 0 05/18/2025 Sex and Gender Information Value Date Recorded Sex Assigned at Female 04/13/2025 11:44 AM EDT Legal Sex Female 2:41 AM EDT Gender Identity Female 05/14/2025 11:04 AM EDT Sexual Orientation Straight 05/14/2025 11 :04 AM EDT documented as of this encounter Last Filed Vital Signs Vital Sign Reading Time Taken Comments Blood Pressure 140/90 05/18/2025 2:14 PM EDT Pulse 84 05/18/2025 2:14 PM EDT Temperature 36.6 C (97.8 F) 05/18/2025 2:14 PM EDT Respiratory Rate 12 05/18/2025 2:14 PM EDT Oxygen Saturation 99% 05/18/2025 2:14 PM EDT Inhaled Oxygen Concentration - - Weight 160 kg (353 lb) 05/18/2025 2:14 PM EDT Height 180.3 cm (5' 11 ) 05/18/2025 2:14 PM EDT Body Mass Index 49.23 05/18/2025 2:14 PM EDT documented in this encounter Functional Status * Over the past 2 weeks, how often have you been bothered by any of the following problems? Question Answer Date of Assessment Author Patient Health Questionnaire -2 Score 1 05/18/2025 2:21 PM EDT Filiberto Nava [place] * Little interest or pleasure in doing things Answer Date of Assessment Author Several days 05/18/2025 2:21 PM EDT Chitra Goyal MA * Feeling down, depressed, or hopeless Answer Date of Assessment Author Not at all 05/18/2025 2:21 PM EDT Chitra Goyal [place] * Trouble falling or staying asleep, or sleeping too much Answer Date of Assessment Author Not at all 05/18/2025 2:21 PM EDT Chitra Goyal MA * Feeling tired or having little energy Answer Date of Assessment Author Several days 05/18/2025 2:21 PM EDT Chitra Goyal MA * Poor appetite or overeating Answer Date of Assessment Author More than half the days 05/18/2025 2:21 PM EDT Chitra Luque MA * Feeling bad about yourself - or that you are a failure or have let yourself or your family down Answer Date of Assessment Author Not at all 05/18/2025 2:21 PM EDT Chitra Goyal MA * Trouble concentrating on things, such as reading the newspaper or watching television Answer Date of Assessment Author Not at all 05/18/2025 2:21 PM EDT Chitra Goyal MA * Moving or speaking so slowly that other people could have noticed? Or the opposite - being so fidgety or restless that you have been moving around a lot more than usual. Answer Date of Assessment Author Not at all 05/18/2025 2:21 PM EDT Chitra Goyal MA * Thoughts that you would be better off or hurting yourself in some way Answer Date of Assessment Author Not at all 05/18/2025 2:21 PM EDT Chitra Goyal MA * Patient Health Questionnaire-9 Score Answer Date of Assessment Author 4 05/18/2025 2:21 PM EDT Chitra Goyal MA * How difficult have these problems made it for you to do your work, take care of things at home, or get along with other people? Answer Date of Assessment Author Not difficult at all 05/18/2025 2:21 PM EDT Chitra Bo MA * Over the last 2 weeks, how often have you been bothered by any of the following problems? Question Answer Date of Assessment Author Feeling nervous, anxious, or on edge 0 05/18/2025 2:22 PM EDT Filiberto Nava MA Not being able to stop or control worrying 0 05/18/2025 2:22 PM EDT Filiberto Nava MA Worrying too much about different things 0 05/18/2025 2:22 PM EDT Filiberto Nava MA Trouble relaxing 0 05/18/2025 2:22 PM EDT Chitra Luque MA Being so restless that it is hard to sit still 0 05/18/2025 2:22 PM EDT Filiberto Nava MA Becoming easily annoyed or irritable 0 05/18/2025 2:22 PM EDT Filiberto Nava MA Feeling afraid as if somethi ng awful might happen 0 05/18/2025 2:22 PM EDT Filiberto Nava MA ELIZABETH-7 Total Score 0 05/18/2025 2:22 PM EDT Chitra Nava MA documented as of this encounter Progress Notes * Sharon Han CNP - 05/18/2025 2:00 PM EDT Subjective: Mel Angel is a 25 y.o. female who presents to the office for a new patient visit. Previous PCP unknown. Interim history: Reports history of ADHD, currently not taking medication, self-manages symptoms. Pt was seen in ED earlier this week for severe menstrual cramps. She reports she usually takes naproxen or ibuprofen for cramps. Current concerns: Weight management - Concerned about weight, difficulty losing weight despite dietary changes (eliminated sugar, sodas, regular milk, fatty foods) and increased exercise (gym membership, more activity). -she also reports her weight affects her asthma symptoms, she has increased symptoms primarily withphysical activity and exertion; no nocturnal symptoms, no current use of inhaler, last used inhalerin childhood; sometimes experiences shortness of breath when climbing stairs or carrying groceries. 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 Diet/exercise: see above Substance use: none Sexual activity: none Contraception: none Mental health: Patient Health Questionnaire-9 Score: 4 (05/18/2025 2:21 PM) Patient Health Questionnaire-2 Score: 1 (05/18/2025 2:21 PM) Thoughts that you would be better off or hurting yourself in some way: Not at all (05/18/2025 2:21 PM) ELIZABETH-7 Total Score: 0 (05/18/2025 2:22 PM) Patient's last menstrual period was 05/10/2025. Regular periods each month, does report intense cramping managed by naproxen or ibuprofen. Last pap [facility] Allergies[4] Review of Systems Vitals: 05/18/25 1414 BP: (!) 140/90 BP Location: Left arm Patient Position: Sitting BP Cuff Size: Large adult Pulse: 84 Resp: 12 Temp: 97.8 ??F (36.6 ??C) TempSrc: Oral SpO2: 99% Weight: 353 lb (160 kg) Height: 5' 11 (1.803 m) Physical Exam Constitutional: Appearance: Normal appearance. She is normal weight. HENT: Head: Normocephalic and atraumatic. Cardiovascular: Rate and Rhythm: Normal rate and regular rhythm. Pulses: Normal pulses. Heart sounds: Normal heart sounds. No murmur heard. No friction rub. No gallop. Pulmonary: Effort: Pulmonary effort is normal. No respiratory distress. Breath sounds: Normal breath sounds. No wheezing or rales. Neurological: General: No focal deficit present. Mental Status: She is alert and oriented to person, place, and time. Psychiatric: Mood and Affect: Mood normal. Behavior: Behavior normal. Thought Content: Thought content normal. Judgment: Judgment normal. Assessment & Plan Encounter for physical examination 25 y/o female with normal physical exam 1. Anticipatory guidance discussed. Specific topics reviewed: drugs, ETOH, and tobacco, importance of regular dental care, importance of regular exercise, importance of varied diet, minimize junk food, and sex; STD and prevention as appropriate. 2. Age appropriate screenings discussed/recommended Routine Screening and Health Maintenance Optometry: Yes [facility] [place] [address] Dentist: No will be added to [facility] waitlist ASCVD risk: 25 y.o. femaleobese Lab Review: orders written for new lab studies as appropriate; see orders Routine Cancer Screening Breast CA: not yet indicated Cervical CA: due, pt reports last pap 2 years ago and historical abnormal result. Reports it was completed at [facility], will request records and pt will f/u for updated pap. Colon CA: not yet indicated Lung CA: not yet indicated Orders: HIV-1/2 Antigen and Antibodies, Fourth Generation, with Reflexes; Future Hepatitis C Antibody with Reflex to HCV, RNA, Quantitative, Real-Time PCR; Future CBC auto differential; Future Comprehensive Metabolic Panel; Future TSH W/Reflex to FT4; Future Lipid Panel, Standard; Future Hemoglobin A1c; Future Menorrhagia with regular cycle Sent prescription for ibuprofen for mgmt of cramping during periods. Orders: ibuprofen 600 MG tablet; Take 1 tablet (600 mg) by mouth 3 times daily. Mild intermittent asthma without complication Asthma triggers include exercise and warm weather Pt denies any recent exacerbations requiring hospitalization and denies inhaler use. Symptoms are controlled currently I will prescribe albuterol for her to have on hand to use prn Orders: albuterol 108 (90 Base) MCG/ACT inhaler; Inhale 2 puffs every 4 (four) hours if needed for wheezing. Encounter for immunization Orders: FLU VACCINE TRIVALENT [id number] (Fluarix) 6 mo + PCV-20 VACCINE 6 wks + Dietary counseling Dietary Recommendations: Fruits, vegetables, whole grains, protein foods, and fat-free or low-fat dairy products are healthychoices. Eat different types of protein foods in your diet. This can include seafood, lean meats, poultry, beans, peas, lentils, nuts, seeds, soy products, and eggs. Limit foods and beverages higher in added sugars, saturated fat, and sodium. Exercise counseling Exercise Recommendations: At least 150 minutes of moderate-intensity physical activity per week, or an equivalent combinationof moderate- and vigorous-intensity activity Class 3 severe obesity with serious comorbidity and body mass index (BMI) of 45.0 to 49.9 in adult,unspecified obesity type Discussed ongoing lifestyle modifications We also discussed anti-obesity medications including oral and injectable medications. Phentermine contraindicated as pt has elevated blood pressure. We will trial GLP 1 meds as pt would benefit from weight loss d/t her high blood pressure and asthma. Discussed instructions for use, mechanism of action, and anticipated side effects. Patient education handout given. No contraindications to GLP 1 meds at this time including history of pancreatitis, MTC, or MEN2 Will initiate PA process and f/u 4 weeks after pt obtains med. Orders: Tirzepatide-Weight Management (Zepbound) 2.5 MG/0.5ML solution auto-injector; Inject 0.5 mL (2.5 mg) under the skin 1 (one) time per week. Current Medications[5] Immunization History Administered Date(s) Administered DTaP 2000, 2000, 2000, 11/06/2001, 07/12/2004 HPV, Quadrivalent 10/23/2011, 09/24/2013 Hep B, Unspecified 2000, 2000, 02/05/2001 HiB, unspecified 2000, 2000, 2000, 08/07/2001 IPV 2000, 2000, 11/06/2001, 07/12/2004 Influenza Whole 07/17/2007, 10/12/2008, 06/07/2009 Influenza, IIV3, injectable 10/23/2011, 09/24/2013, 06/09/2014 MMR 08/07/2001, 07/12/2004 Meningococcal ACWY, unspecified 10/23/2011 Pneumococcal Conjugate PCV 7 2000, 2000, 2000, 08/07/2001 Tdap 10/23/2011, 05/28/2017 Varicella 05/08/2001, 10/23/2011 Follow up in about 2 weeks (around 06/01/2025) for f/u for pap . [1] Patient Active Problem List Diagnosis Asthma Attention deficit hyperactivity disorder, combined type Migraine headache Oppositional defiant disorder Poor historian [2] History reviewed. No pertinent surgical history. [3] Family History Problem Relation Name Age of Onset COPD Maternal Grandmother Other (HTN) Maternal Grandmother Hyperlipidemia Maternal Grandmother Ovarian cancer Paternal Grandmother [4] No Known Allergies [5] Current Outpatient Medications Medication Sig Dispense Refill albuterol 108 (90 Base) MCG/ACT inhaler Inhale 2 puffs every 4 (four) hours if needed for wheezing.18 g 0 ibuprofen 600 MG tablet Take 1 tablet (600 mg) by mouth 3 times daily. 90 tablet 0 No current facility-administered medications for this visit. documented in this encounter Miscellaneous Notes * Assessment & Plan Note - Sharon Han CNP - 05/18/2025 2:00 PM EDT Associated Problem(s): Asthma Asthma triggers include exercise and warm weather Pt denies any recent exacerbations requiring hospitalization and denies inhaler use. Symptoms are controlled currently I will prescribe albuterol for her to have on hand to use prn Orders: albuterol 108 (90 Base) MCG/ACT inhaler; Inhale 2 puffs every 4 (four) hours if needed for wheezing. documented in this encounter Plan of Treatment Upcoming Encounters Date Type Department Care Team (Late st Contact Info) Description 06/02/2025 9:00 AM EDT Procedure Visit [facility] [address] [place] [address] Sharon Han CNP [address] [place] [address] Scheduled Orders Name Type Priority Associated Diagnoses Orde r Schedule HIV-1/2 Antigen and Antibodies, Fourth Generation, with Reflexes Lab Routine Encounter for physical examination Expected: 05/18/2025 (Approximate), Expires: 05/18/2026 Hepatitis C Antibody with Reflex to HCV, RNA, Quantitative, Real-Time PCR Lab Routine Encounter for physical examination Expected: 05/18/2025, Expires: 05/18/2026 documented as of this encounter Procedures Procedure Name Priority Date/Time Associated Diagnosis Comments TSH W/REFLEX TO FT4 Routine 05/19/2025 3 :10 PM EDT Encounter for physical examination CBC WITH AUTO DIFFERENTIAL Routine 05/19/2025 3:10 PM EDT Encounter for physical examination HEMOGLOBIN A1C Routine 05/19/2025 3:10 PM EDT Encounter for physical examination LIPID PANEL, STANDARD Routine 05/19/2025 3:10 PM EDT Encounter for physical examination COMPREHENSIVE METABOLIC PANEL Routine 05/19/2025 3:10 PM EDT Encounter for physical examination documented in this encounter Results * Hemoglobin A1c (05/19/2025 3:10 PM EDT) Hemoglobin A1c 5.8 <6.0 % [facility] Comment:Hemoglobin A1C Refer ence Range Adults: 4.8 - 6.0 % Non diabetic: < 6.0 % Goal: < 7.0 %Additional Action Suggested: > 8.0 %Note: Hemoglobin A1c results are invalid for patients with abnormal amounts of HbF. Blood transfusions may impact the HbA1c concentration in the patient sample. Estimated Average Glucose 120 mg/dL [facility] Comment:eAG = Estimated ave rage glucose which is %A1C expressed asaverage glucose, using the formula of the T2K-WbadteuCzsymlb Glucose study (ADAG), Diabetes Care, Vol.31,#8,Mar. 2007 Blood Venous blood specimen / Unknown 05/19/2025 3:10 PM EDT 05/19/2025 5:38 PM EDT [facility] LAB BLOOD ORDERABLES Sherry l Result [facility] [address] [place] [phone] * (ABNORMAL) Lipid Panel, Standard (05/19/2025 3:10 PM EDT) Triglycerides 134 <150 mg/dL [facility] Comment:Desirable Triglyceri de: less than 150 mg/dLBorderline High Triglyceride 150-199 mg/dLHigh Triglyceride: 200-499 mg/dLVery High Triglyceride: greater than or equal to 5OO mg/dL Cholesterol 188 <200 mg/dL [facility] Comment:Desirable Cholestero l: less than 200 mg/dLBorderline High Cholesterol: 200-239 mg/dLHigh Cholesterol: greater than 239 mg/dL LDL Cholesterol Calculated 131(H) <100 mg/dL [facility] Comment:Desirable LDL: less than 100 mg/dLNear Optimal/Above Optimal LDL: 110- 129 mg/dLBorderline High LDL: 130-159 mg/dLHigh LDL: 160-189 mg/dLVery High LDL: greater than or equal to 190 mg/dL HDL Cholesterol 31(L) >40 mg/dL [facility] Comment:Desirable HDL: great er than 40 mg/dL Note: This HDL assay may give artificially low results in patients with liver disease. Blood Venous blood specimen / Unknown 05/19/2025 3:10 PM EDT 05/19/2025 5:38 PM EDT [facility] LAB BLOOD ORDERABLES Sherry l Result Performing Organization Address [facility] Co de Phone Number [facility] [address] [place] [phone] * TSH W/Reflex to FT4 (05/19/2025 3:10 PM EDT) TSH reflex Free T4 1.29 0.32 - 4.0 uIU/mL [facility] Blood Venous blood specimen / Unknown 05/19/2025 3:10 PM EDT 05/19/2025 5:38 PM EDT [facility] LAB BLOOD ORDERABLES Sherry l Result Performing Organization Address [facility] Co de Phone Number [facility] [address] [place] [phone] * (ABNORMAL) Comprehensive Metabolic Panel (05/19/2025 3:10 PM EDT) Sodium 140 135 - 145 mmol/L [facility] Potassium 4.4 3.3 - 5.1 mmol/L [facility] Chloride 107 96 - 108 mmol/L [facility] Carbon Dioxide 27 22 - 29 mmol/L [facility] Anion Gap 10(L) 12 - 20 [facility] Urea Nitrogen (BUN) 10 9 - 16 mg/dL [facility] Creatinine, Serum 0.72 0.5 - 1.4 mg/dL [facility] Estimated Glomerular Filt Rate >60 [facility] Comment:Chronic Kidney Disea se: Estimated GFR < 60 mL/min/[id number] Kidney Disease: Estimated GFR < 15 mL/min/1.73m2 Glucose 95 60 - 115 mg/dL [facility] Calcium 9.2 8.4 - 10.2 mg/dL [facility] Bilirubin, Total 0.4 0.0 - 1.0 mg/dL [facility] Aspartate Amino Transferase 24 5 - 31 U/L [facility] Alanine Aminotransferase 19 0 - 31 U/L [facility] Total Protein 7.2 6.5 - 8.0 g/dL [facility] Albumin Level 4.2 3.5 - 5.0 g/dL [facility] Alkaline Phosphatase 64 39 - 117 U/L [facility] Blood Venous blood specimen / Unknown 05/19/2025 3:10 PM EDT 05/19/2025 5:38 PM EDT Fernandojuan david Han [facility] LAB BLOOD ORDERABLES Sherry l Result [facility] [address] [place] [address] [phone] * CBC auto differential (05/19/2025 3:10 PM EDT) White Blood Count 8.9 4.8 - 10.8 X10*3/uL [facility] Red Blood Count 4.49 4.20 - 5.50 X10*6/uL [facility] Hemoglobin 12.7 12.0 - 16.0 g/dl [facility] Hematocrit 39.1 37.0 - 47.0 % [facility] Mean Corpuscular Volume 87.1 80.0 - 98.0 fL [facility] Mean Corpuscular Hemoglobin 28.3 27.0 - 33.0 pg [facility] Mean Corpuscular HGB Conc 32.5 31.0 - 35.0 g/dl [facility] Red Cell Distribution Width 13.5 11.0 - 16.0 % [facility] Platelet Count 357 160 - 400 X10*3/uL [facility] Mean Platelet Volume 11.8 9.4 - 12.3 fL [facility] Neutrophils Percent Auto 70.1 45 - 73 % [facility] Imm Gran Pct Auto 0.2 0.0 - 0.4 % [facility] Lymphocytes Percent Auto 23.2 20 - 40 % [facility] Monocytes Percent Auto 5.8 2 - 11 % [facility] Eosinophils Percent Auto 0.3 0 - 4 % [facility] Basophils Percent Auto 0.4 0 - 2 % [facility] NRBC Pct Auto 0.0 0.0 - 0.2 /100WBC [facility] Neutrophils Absolute Auto 6.3 2.0 - 8.3 x10*3/uL [facility] Imm Gran Abs Auto 0.02 0.00 - 0.03 X10*3/uL [facility] Lymphocytes Absolute Auto 2.1 1.2 - 4.9 X10*3/uL [facility] Monocytes Absolute Auto 0.5 0.1 - 1.2 X10*3/uL [facility] Eosinophils Absolute Auto 0.0 0.0 - 0.4 X10*3/uL [facility] Basophils Absolute Auto 0.0 0.0 - 0.2 X10*3/uL [facility] NRBC Abs Auto 0.000 0.0 - 0.012 X10*3/uL [facility] Blood Venous blood specimen / Unknown 05/19/2025 3:10 PM EDT 05/19/2025 5:38 PM EDT Sahron Han [employer] LAB BLOOD ORDERABLES Sherry l Result [facility] [address] [place], [place] [phone] documented in this encounter Visit Diagnoses Diagnosis Encounter for physical examination- Primary Menorrhagia with regular cycle Mild intermittent asthma without complication Encounter for immunization Dietary counseling Dietary surveillance and counseling Exercise counseling Class 3 severe obesity with serious comorbidity and body mass index (BMI) of 45.0 to 49.9 in adult, unspecified obesity type documented in this encounter Additional Health Concerns Assessment Noted Time PHQ-9 Depression Total Score: 4 05/18/20 25 2:21 PM EDT documented as of this encounter Care Teams Seat Maker Relationship Specialty Start Date End Date Sharon Han CNP [address] [place] [phone] PCP - General Family Medicine 05/18/25 documented as of this encounter
[2025-05-19 17:43] LABS: MANUAL DIFF FLAG NO
[2025-05-19 18:11] LABS: Hematocrit 39.1 % (37.0-47.0); Hemoglobin 12.7 g/dl (12.0-16.0); Imm Gran Abs Auto 0.02 X10*3/uL (0.00-0.03); Imm Gran Pct Auto 0.2 % (0.0-0.4); Lymphocytes Absolute Auto 2.1 X10*3/uL (1.2-4.9); Mean Corpuscular HGB Conc 32.5 g/dl (31.0-35.0); Mean Corpuscular Hemoglobin 28.3 pg (27.0-33.0); Mean Corpuscular Volume 87.1 fL (80.0-98.0); NRBC Abs Auto 0.000 X10*3/uL (0.0-0.012); NRBC Pct Auto 0.0 /100WBC (0.0-0.2); Platelet Count 357 X10*3/uL (160-400); Red Blood Count 4.49 X10*6/uL (4.20-5.50); White Blood Count 8.9 X10*3/uL (4.8-10.8)
[2025-05-19 18:31] LABS: Alanine Aminotransferase 19 U/L (0-31); Albumin Level 4.2 g/dL (3.5-5.0); Alkaline Phosphatase 64 U/L (39-117); Anion Gap 10 (12-20); Aspartate Amino Transferase 24 U/L (5-31); Blood Urea Nitrogen 10 mg/dL (9-16); Calcium 9.2 mg/dL (8.4-10.2); Carbon Dioxide 27 mmol/L (22-29); Chloride 107 mmol/L (96-108); Cholesterol 188 mg/dL (<200); Estimated Glomerular Filt Rate > 60; HDL Cholesterol 31 mg/dL (>40); Potassium 4.4 mmol/L (3.3-5.1); Sodium 140 mmol/L (135-145); Total Protein 7.2 g/dL (6.5-8.0); Triglycerides 134 mg/dL (<150)
--- OUTSIDE RECORDS SUMMARY | 2025-05-19 19:23 | XMS_ITS | Clinical Summary ---
Author Organization [employer] Address [address] [facility] [address] [place] [address] Care Team Providers Care Police Chief Name Role Phone Sharon Han [employer]ANT [employer] Primary Care Provider [phone] [phone] Allergies No known active allergies Medications albuterol 108 (90 Base) MCG/ACT inhalerIndicatio ns:Mild intermittent asthma without complication Inhale 2 puffs every 4 (four) hours if needed for wheezing. 18 g 05/18/20 25 026 Active ibuprofen 600 MG tabletIndication s:Menorrhagia with regular cycle Take 1 tablet (600 mg) by mouth 3 times daily. 90 tablet 05/18/20 025 Active Tirzepatide-Weig ht Management (Zepbound) 2.5 MG/0.5ML solution auto-injectorInd ications:Class 3 severe obesity with serious comorbidity and body mass index (BMI) of 45.0 to 49.9 in adult, unspecified obesity type Inject 0.5 mL (2.5 mg) under the skin 1 (one) time per week. 2 mL 05/18/20 25 025 Active amoxicillin-clav ulanate (Augmentin) 875-125 MG tablet Take 1 tablet by mouth 2 times daily. 09/29/19 25 025 Discontinued oseltamivir (Tamiflu) 75 MG capsule Take 1 capsule by mouth 2 times daily. 09/27/19 25 025 Discontinued raNITIdine HCl (RANITIDINE 150 MAX STRENGTH PO) Take 150 mg by mouth 2 times daily. 12/01/19 20 025 Discontinued Levonorgestrel (Liletta, 52 MG,) 20.1 MCG/DAY intrauterine device Insert 52 mg into the vagina. 08/10/20 20 025 Discontinued ibuprofen 600 MG tabletIndication s:Menorrhagia with regular cycle Take 1 tablet (600 mg) by mouth 3 times daily. 90 tablet 05/18/20 025 Discontinued(Re order (will not trigger notification to Pharmacy)) Active Problems Problem Noted Date Diagnosed Date Asthma 05/18/2025 Assessment & Plan (05/18/2025 3:25 PM EDT): Asthma triggers include exercise and warm weather Pt denies any recent exacerbations requiring hospitalization and denies inhaler use. Symptoms are controlled currently I will prescribe albuterol for her to have on hand to use prn Orders: albuterol 108 (90 Base) MCG/ACT inhaler; Inhale 2 puffs every 4 (four) hours if needed for wheezing. Attention deficit hyperactivity disorder, combin ed type 05/18/2025 Migraine headache 05/18/2025 Oppositional defiant disorder 05/18/2025 Poor historian 05/18/2025 Encounters Date Type Department Care Team Description 05/18/2025 2:00 PM EDT Office Visit [facility] MED & PEDS [address] [place] [address] Sharon Han CNP Encounter for physical examination (Primary Dx); Menorrhagia with regular cycle; Mild intermittent asthma without complication; Encounter for immunization; Dietary counseling; Exercise counseling; Class 3 severe obesity with serious comorbidity and body mass index (BMI) of 45.0 to 49.9 in adult, unspecified obesity type 05/18/2025 Telephone [facility] MED & PEDS [address] [place] [address] Sharon Han CNP 05/18/2025 Travel 05/12/2025 Patient Outreach [facility] [address] [place] [phone] Fox Amador MD Pre-visit Planning (SDOH screening negative and Tobacco screening negative) 04/27/2025 Telephone [facility] MED & PED[facility] [address] [place] [address] Chitra Nava MA chart prep 04/18/2025 Telephone [facility] [address] [place] [phone] Fox Amador MD 04/13/2025 Telephone [facility] [address] [place] [address] Fox Amador MD new pt from Last 3 Months Immunizations Immunization Administration Dates Next Due DTaP 07/12/2004, 2,2000,09/25,2000 HPV, Quadrivalent 09/24/2013,10/23/2011 Hep B, Unspecified 02/05/2001,2000, 000 HiB, unspecified 08/07/2001, 1,2000,07/16 IPV 07/12/2004, 2,2000,07/16 Influenza Whole 06/07/2009,10/12/2008,07/17/2007 Influenza, IIV3, injectable 06/09/2014, 4,10/23/2011 Influenza, seasonal, injecta ble, preservative free 05/18/2025 MMR 07/12/2004,08/07/2001 Meningococcal ACWY, unspecified 10/23/2011 Pneumococcal Conjugate PCV 20 05/18/2025 Pneumococcal Conjugate PCV 7 08/07/2001, 2000,2000,07/16 Tdap 05/28/2017,10/23/2011 Varicella 10/23/2011,05/08/2001 Family History Medical History Relation Name Comments COPD Maternal Grandmother HTN Maternal Grandmother Hyperlipidemia Maternal Grandmother Ovarian cancer Paternal Grandmother Relation Name Status Comments Maternal Grandmother Paternal Grandmother Social History Tobacco Use Types Packs/Day Years [...] Orientation Straight 05/14/2025 11 :04 AM EDT Last Filed Vital Signs Vital Sign Reading [...] Mass Index 49.23 05/18/2025 2:14 PM EDT Plan of Treatment Upcoming Encounters Date Type Department Care Team ([facility] st Contact Info) Description 06/02/2025 9:00 AM EDT Procedure Visit [facility] MED & PEDS [address] [place] [address] Sharon Han CNP 505 [facility] [place] [address] Health Maintenance Due Date Last Done Comments HIV Screening 2000 Hepatitis C Screening 2018 Pap Smear 2021 Alcohol/Substance Use Screening 05/18/2026 05/18/2025 COVID-19 Vaccine ( season) 2026 Postponed from 04/25/2025 (Patient Refused) Depression Screening 05/18/2026 05/18/2025, 05/18/20 Disability Screening 05/18/2026 05/18/2025 Family Planning (PISQ) 05/18/2026 05/18/2025 SDOH Screening 05/18/2026 05/18/2025 Tobacco Screening 05/18/2026 05/18/2025 Diabetes: Hemoglobin A1C 05/19/2026 05/19/2025 DTaP/Tdap/Td Vaccines (8 - Td or Tdap) 05/28/2027 05/28/2017, 10/23/2011, 07/12/2004, Additional history exists Lipid Panel 05/19/2030 05/19/2025 Zoster Vaccines (1 of 2) 2050 RSV Patients and Patients Aged 60 years or older (1 - 1-dose 75+ series) 2075 Hepatitis B Vaccines Completed 02/05/2001, 2000, 2000 HIB Vaccines Completed 08/07/2001, 10/24, 2000, Additional history exists IPV Vaccines Completed 07/12/2004, 10/23, 2000, Additional history exists Meningococcal Vaccine Aged Out 10/23/2011 No luz marina laly eligible based on patient's age to complete this topic HPV Vaccines Completed 09/24/2013, 10/23/2011 Influenza Vaccine Completed 05/18/2025, , 09/24/2013, Additional history exists Pneumococcal Vaccine: Pediatrics (0 to 5 Years) and At-Risk Patients (6 to 49) Years Completed 05/18/2025, 08/07/2001, 2000, Additional history exists Hepatitis A Vaccines Aged Out No long er eligible based on patient's age to complete this topic Meningococcal B Vaccine Aged Out No l onger eligible based on patient's age to complete this topic RSV under 20 months Aged Out No longe r eligible based on patient's age to complete this topic Rotavirus Vaccines Aged Out No longer eligible based on patient's age to complete this topic Procedures Procedure Name Priority Date/Time Associated Diagnosis Comments HEMOGLOBIN A1C Routine 05/19/2025 3:10 PM EDT Encounter for physical examination LIPID PANEL, STANDARD Routine 05/19/2025 3:10 PM EDT Encounter for physical examination TSH W/REFLEX TO FT4 Routine 05/19/2025 3 :10 PM EDT Encounter for physical examination COMPREHENSIVE METABOLIC PANEL Routine 05/19/2025 3:10 PM EDT Encounter for physical examination CBC WITH AUTO DIFFERENTIAL Routine 05/19/2025 3:10 PM EDT Encounter for physical examination from Last 3 Months Results * TSH W/Reflex to FT4 (05/19/2025 3:10 PM EDT) TSH reflex Free T4 1.29 0.32 - 4.0 uIU/mL [facility] Blood Venous blood specimen / Unknown 05/19/2025 3:10 PM EDT 05/19/2025 5:38 PM EDT [facility] LAB BLOOD ORDERABLES Sherry l Result [facility] [address] [place] [address] [phone] * CBC auto differential (05/19/2025 3:10 PM EDT) White Blood Count 8.9 4.8 - 10.8 X10*3/uL [facility] Red Blood Count 4.49 4.20 - 5.50 X10*6/uL [facility] Hemoglobin 12.7 12.0 - 16.0 g/dl [facility] Hematocrit 39.1 37.0 - 47.0 % [facility] Mean Corpuscular Volume 87.1 80.0 - 98.0 fL [facility] Mean Corpuscular Hemoglobin 28.3 27.0 - 33.0 pg [facility] Mean Corpuscular HGB Conc 32.5 31.0 - 35.0 g/dl [facility] Red Cell Distribution Width 13.5 11.0 - 16.0 % [facility] Platelet Count 357 160 - 400 X10*3/uL [facility] Mean Platelet Volume 11.8 9.4 - 12.3 fL [facility] Neutrophils Percent Auto 70.1 45 - 73 % [facility] Imm Gran Pct Auto 0.2 0.0 - 0.4 % [facility] Lymphocytes Percent Auto 23.2 20 - 40 % [facility] Monocytes Percent Auto 5.8 2 - 11 % [facility] Eosinophils Percent Auto 0.3 0 - 4 % [facility] Basophils Percent Auto 0.4 0 - 2 % [facility] NRBC Pct Auto 0.0 0.0 - 0.2 /100WBC [facility] Neutrophils Absolute Auto 6.3 2.0 - 8.3 x10*3/uL [facility] Imm Gran Abs Auto 0.02 0.00 - 0.03 X10*3/uL [facility] Lymphocytes Absolute Auto 2.1 1.2 - 4.9 X10*3/uL [facility] Monocytes Absolute Auto 0.5 0.1 - 1.2 X10*3/uL [facility] Eosinophils Absolute Auto 0.0 0.0 - 0.4 X10*3/uL [facility] Basophils Absolute Auto 0.0 0.0 - 0.2 X10*3/uL [facility] NRBC Abs Auto 0.000 0.0 - 0.012 X10*3/uL [facility] Blood Venous blood specimen / Unknown 05/19/2025 3:10 PM EDT 05/19/2025 5:38 PM EDT [facility] LAB BLOOD ORDERABLES Sherry l Result Performing Organization Address [facility] Co de Phone Number [facility] [address] [place] [phone] * Hemoglobin A1c (05/19/2025 3:10 PM EDT) Hemoglobin A1c 5.8 <6.0 % [facility] Comment:Hemoglobin A1C Refer ence Range Adults: 4.8 - 6.0 % Non diabetic: < 6.0 % Goal: < 7.0 %Additional Action Suggested: > 8.0 %Note: Hemoglobin A1c results are invalid for patients with abnormal amounts of HbF. Blood transfusions may impact the HbA1c concentration in the patient sample. Estimated Average Glucose 120 mg/dL [facility] Comment:eAG = Estimated ave rage glucose which is %A1C expressed asaverage glucose, using the formula of the F3L-YbofvlnMyaldtl Glucose study (ADAG), Diabetes Care, Vol.31,#8,Mar. 2007 Blood Venous blood specimen / Unknown 05/19/2025 3:10 PM EDT 05/19/2025 5:38 PM EDT [facility] LAB BLOOD ORDERABLES Sherry l Result Performing Organization Address [facility] Co de Phone Number [facility] [address] [place] [phone] * (ABNORMAL) Lipid Panel, Standard (05/19/2025 3:10 PM EDT) Triglycerides 134 <150 mg/dL [facility] Comment:Desirable Triglyceri de: less than 150 mg/dLBorderline High Triglyceride 150-199 mg/dLHigh Triglyceride: 200-499 mg/dLVery High Triglyceride: greater than or equal to 5OO mg/dL Cholesterol 188 <200 mg/dL [facility] Comment:Desirable Cholestero l: less than 200 mg/dLBorderline High Cholesterol: 200-239 mg/dLHigh Cholesterol: greater than 239 mg/dL LDL Cholesterol Calculated 131(H) <100 mg/dL [facility] Comment:Desirable LDL: less than 100 mg/dLNear Optimal/Above Optimal LDL: 110- 129 mg/dLBorderline High LDL: 130-159 mg/dLHigh LDL: 160-189 mg/dLVery High LDL: greater than or equal to 190 mg/dL HDL Cholesterol 31(L) >40 mg/dL [facility] Comment:Desirable HDL: great er than 40 mg/dL Note: This HDL assay may give artificially low results in patients with liver disease. Blood Venous blood specimen / Unknown 05/19/2025 3:10 PM EDT 05/19/2025 5:38 PM EDT [facility] LAB BLOOD ORDERABLES Sherry l Result [facility] [address] [place] [address] [phone] * (ABNORMAL) Comprehensive Metabolic Panel (05/19/2025 3:10 PM EDT) Sodium 140 135 - 145 mmol/L [facility] Potassium 4.4 3.3 - 5.1 mmol/L [facility] Chloride 107 96 - 108 mmol/L [facility] Carbon Dioxide 27 22 - 29 mmol/L [facility] Anion Gap 10(L) 12 - 20 [facility] Urea Nitrogen (BUN) 10 9 - 16 mg/dL [facility] Creatinine, Serum 0.72 0.5 - 1.4 mg/dL [facility] Estimated Glomerular Filt Rate >60 [facility] Comment:Chronic Kidney Disea se: Estimated GFR < 60 mL/min/[id number] Kidney Disease: Estimated GFR < 15 mL/min/1.73m2 Glucose 95 60 - 115 mg/dL [facility] Calcium 9.2 8.4 - 10.2 mg/dL [facility] Bilirubin, Total 0.4 0.0 - 1.0 mg/dL [facility] Aspartate Amino Transferase 24 5 - 31 U/L [facility] Alanine Aminotransferase 19 0 - 31 U/L [facility] Total Protein 7.2 6.5 - 8.0 g/dL [facility] Albumin Level 4.2 3.5 - 5.0 g/dL [facility] Alkaline Phosphatase 64 39 - 117 U/L [facility] Blood Venous blood specimen / Unknown 05/19/2025 3:10 PM EDT 05/19/2025 5:38 PM EDT Sharon Han [employer] LAB BLOOD ORDERABLES Sherry l Result [facility] [address] [place] [address] [phone] from Last 3 Months Insurance [facility] C3 Care Teams Police Chief Relationship Specialty Start Date End Date Sharon Han CNP [address] [place] [phone] PCP - General Family Medicine 05/18/25
--- OUTSIDE RECORDS SUMMARY | 2025-05-19 19:23 | XMS_ITS | Encounter Summary ---
Author Organization [employer] Address [address] [facility] [address]t [place] [address] Care Team Providers Care Wheelage Clerk Name Role Phone Sharon Han CNP Primary Care Provider [phone] Encounter Details Date Type Department Care Team (Late st Contact Info) Description 05/18/2025 Telephone [facility] [address] [place], [place] [phone] Sharon Han CNP [address] [place] [address] Social History Tobacco Use Types Packs/Day Years Used Date Smoking Tobacco: Never Passive Smoke Exposure: Never Smokeless Tobacco: Never Depression Answer Date Recorded Patient Health Questionnaire-9 [...] Q2 Not on file 05/12/2025 Comments No Sex and Gender Information Value Date Recorded Sex Assigned at Female 04/13/2025 11:44 AM EDT Legal Sex Female 2:41 AM EDT Gender Identity Female 05/14/2025 11:04 AM EDT Sexual Orientation Straight 05/14/2025 11 :04 AM EDT documented as of this encounter Functional Status * Over the [...] Author Several days 05/18/2025 2:21 PM EDT [facility] Chitra raza [place] * Poor appetite or overeating Answer Date of Assessment Author More than half the days 05/18/2025 2:21 PM EDT Chitra Luque [place] * Feeling bad about yourself - or that you are a failure or have let yourself or your family down Answer Date of Assessment Author Not at all 05/18/2025 2:21 PM EDT [facility] Chitra raza [place] * Trouble concentrating on things, such as reading the newspaper or watching television Answer Date of Assessment Author Not at all 05/18/2025 2:21 PM EDT [facility] Chitra raza [place] * Moving or speaking so slowly that other people could have noticed? Or the opposite - being so fidgety or restless that you have been moving around a lot more than usual. Answer Date of Assessment Author Not at all 05/18/2025 2:21 PM EDT [facility] Chitra raza [place] * Thoughts that you would be better off or hurting yourself in some way Answer Date of Assessment Author Not at all 05/18/2025 2:21 PM EDT [facility] Chitra raza [place] * Patient Health Questionnaire-9 Score Answer Date of Assessment Author 4 05/18/2025 2:21 PM EDT [facility] Chitra raza [place] * How difficult have these problems [...] Trouble relaxing 0 05/18/2025 2:22 PM EDT D Chitra Garza [place] Being so restless that it is [...] Nava MA documented as of this encounter Miscellaneous Notes * Telephone Encounter - Angelia Resendiz LPN - 05/18/2025 4:22 PM EDT Pa generated and faxed to ----- Message from Sharon Han sent at 05/18/2025 3:24 PM EDT ----- Regarding: NEREIDA Claudio Good afternoon, Please see attached note, can we please generate PA request for Zepbound 2.5mg for this patient Thank you! Alexxis documented in this encounter Plan of Treatment Upcoming Encounters Date Type Department Care Team (Late st Contact Info) Description 06/02/2025 9:00 AM EDT Procedure Visit [facility] & PEDS [address] [place] [address] Sharon Han CNP [address] [place] [address] documented as of this encounter Visit Diagnoses Not on filedocumented in this encounter Additional Health Concerns Assessment Noted Time PHQ-9 Depression Total Score: 4 05/18/20 25 2:21 PM EDT documented as of this encounter Care Teams Wheelage Clerk Relationship Specialty Start Date End Date Sharon Han CNP [address] [place] [address] PCP - General Family Medicine 05/18/25 documented as of this encounter
--- OUTSIDE RECORDS SUMMARY | 2025-05-19 19:23 | XMS_ITS | Clinical Summary ---
Author Organization Formerly [facility] Address [address] [place] [address] Care Team Providers Care White Spooler Name Role Phone Unavailable Primary Care Provider Unavailabl e Allergies No known active allergies Medications naproxen (NAPROSYN) 500 MG tabletIndicatio ns:Acute pain of both knees Take 1 tablet (500 mg total) by mouth 2 (two) times a day as needed for mild pain. Take with meals or food to reduce stomach upset. 14 tablet 10/06/2021 Active Social History Tobacco Use Types Packs/Day Years Used Date Smoking Tobacco: Never Smokeless Tobacco: Never Alcohol Use Standard Drinks/Week Comments Never 0 (1 standard drink = 0.6 oz pur e alcohol) Comments Unknown Sex and Gender Information Value Date Recorded Sex Assigned at Not on file Legal Sex Female 4:33 PM EST Gender Identity Not on file Sexual Orientation Not on file Last Filed Vital Signs Vital Sign Reading Time Taken Comments Blood Pressure 158/101 10/06/2021 4:42 PM EST Pulse 86 10/06/2021 4:42 PM EST Temperature 36.8 C (98.3 F) 10/06/2021 4:42 PM EST Respiratory Rate - - Oxygen Saturation 98% 10/06/2021 4:42 PM EST Inhaled Oxygen Concentration - - Weight - - Height - - Body Mass Index - - Plan of Treatment Health Maintenance Due Date Last Done Comments Hepatitis C Virus Screening 2000 HIV Screening 2013 HPV Vaccines (1 - 3-dose series) 2015 DTaP/Tdap/Td Vaccines (1 - Tdap) 2019 Hepatitis B Vaccines (1 of 3 - 19+ 3-dose series) 2019 Pap Smear (Ages 21-65) 2021 Influenza Vaccine 03/25/2025 06/09/2014, , 10/23/2011, Additional history exists COVID-19 Vaccine (2023-25 season) 2025 Pneumococcal Vaccine: Pediatric (0-5 Years) and At-Risk Patients (6 to 49 Years) Aged Out No longer eligible based on patient's age to complete this topic Insurance [facility]
--- OUTSIDE RECORDS SUMMARY | 2025-05-19 19:23 | XMS_ITS ---
Author Name [facility] Organization Unknown Encounters Encounter Type Encounter Reason Primary Diagnosis Location Date Ambulatory Pain in right knee [facility] 10/06/2021 Care Team Organization Name Specialty Phone Email Start Date End Da te [facility] 10/06/2021 04/12/2024 [facility] 10/06/2021 10/06/2021
--- OUTSIDE RECORDS SUMMARY | 2025-05-19 19:24 | XMS_ITS | Encounter Summary ---
Author Organization [employer] Address [address] [facility] [address] [place] [address] Care Team Providers Care Drier Name Role Phone Sharon Han KAYLAH Primary Care Provider [phone] Encounter Details Date Type Department Care Team (Latest Contact Info) Description 05/18/2025 Travel Social History Tobacco Use Types Packs/Day Years [...] Author Several days 05/18/2025 2:21 PM EDT [facility] Chitra raza [place] * Feeling down, depressed, or hopeless Answer Date of Assessment Author Not at all 05/18/2025 2:21 PM EDT [facility] Chitra raza [place] * Trouble falling or staying asleep, or sleeping too much Answer Date of Assessment Author Not at all 05/18/2025 2:21 PM EDT [facility] Chitra raza [place] * Feeling tired or having little energy Answer Date of Assessment Author Several days 05/18/2025 2:21 PM EDT [facility] Chitra raza [place] * Poor appetite or overeating Answer Date of Assessment Author More than half the days 05/18/2025 2:21 PM EDT Chitra Luque [place] * Feeling bad about yourself - or that you are a failure or have let yourself or your family down Answer Date of Assessment Author Not at all 05/18/2025 2:21 PM EDT [facility] Chitra raza [place] * Trouble concentrating on things, such as reading the newspaper or watching television Answer Date of Assessment Author Not at all 05/18/2025 2:21 PM EDT [facility] Chitra raza [place] * Moving or speaking [...] Assessment Author 4 05/18/2025 2:21 PM EDT [facility] Chitra raza [place] * How difficult have [...] Nava MA documented as of this encounter Plan of Treatment Upcoming Encounters Date Type Department Care Team (Late st Contact Info) Description 06/02/2025 9:00 AM EDT Procedure Visit [facility] MED & PEDS [address] [place] [address] Sharon Han, KAYLAH [address] [place] [address] documented as of this encounter Visit Diagnoses Not on filedocumented in this encounter Additional Health Concerns Assessment Noted Time PHQ-9 Depression Total Score: 4 05/18/20 25 2:21 PM EDT documented as of this encounter Care Teams Drier Relationship Specialty Start Date End Date Sharon Han CNP [address] [place] [phone] PCP - General Family Medicine 05/18/25 documented as of this encounter
[2025-05-20 09:07] LABS: HIV Num 1 0.11 S/CO (0.00-0.99); ~HepC Num1 0.10 S/CO (0.00-0.79); ~Hepatitis C Antibody Nonreactive (Nonreactive)
== END 2025-05-19 15:09 | disposition home or self-care (01) ==
LOC: HO.CHCLDS 15:08
DX: Z00.00 Encounter for general adult medical examination without abnormal findings (principal); Z13.6 Encounter for screening for cardiovascular disorders; Z13.1 Encounter for screening for diabetes mellitus; Z11.59 Encounter for screening for other viral diseases; Z11.4 Encounter for screening for human immunodeficiency virus [HIV]
CPT/HCPCS: 36415; 80053; 80061; 83036; 84443; 85025; 86803; 87389

== ENCOUNTER 2025-06-17 00:56 | Emergency (ER) | payer MEDICAID, SELFPAY ==
--- NOTE | ~2025-06-17 | XR_ITS ---
CLINICAL HISTORY: cp cough 1 view chest x-ray. Comparison: CR - XR CHEST 1V - 09/25/24 23:55 EST Findings: No consolidation, pneumothorax, or effusion. Heart size normal. Impression: 1. No acute cardiopulmonary process. No focal pulmonary consolidation. This document has been electronically signed by: Marshall Daugherty MD on 06/17/2025 01:42:14
--- NOTE | 2025-06-17 01:01 | ECG_ITS ---
Test Reason : cp Blood Pressure : */* mmHG Vent. Rate : 81 BPM Atrial Rate : 81 BPM P-R Int : 118 ms QRS Dur : 80 ms QT Int : 362 ms P-R-T Axes : 34 12 20 degrees QTcB Int : 420 ms Normal sinus rhythm Normal ECG When compared with ECG of 25-Sep-2024 23:07, No significant change was found Referred By: Generic ED Physician Electronically Signed By: ELVIE BEATTY MD
[2025-06-17 01:21] VITALS: BP 155/95; PULSE 89; RESP 16; TEMP 36.4; O2SAT 99; BMI 44.6
--- NOTE | 2025-06-17 01:35 | ED_ITS ---
HPI - Chest Pain General Chief Complaint: Chest Pain Stated Complaint: CP Time Seen by Provider: 06/17/25 01:33 Source: patient Mode of arrival: ambulatory Limitations: no limitations History of Present Illness ED Provider: Kevin PADRON HPI narrative: The patient is a 25-year-old female presenting to the ED for evaluation of sharp pain in the left sternal border which began while at rest at home while lying in bed. Patient reports pain began suddenly and without provocation, lasted approximately 1 minute, and then became less severe and more dull in nature. The patient reports she was recently seen at [facility] ER for UTI symptoms, at that time was treated with Bactrim. Patient reports UTI symptoms have improved dramatically, however patient reports since the day after being seen in the ED, she has been experiencing viral URI symptoms with sinus congestion, generalized malaise and fatigue, and cough. The patient reports she was coughing earlier tonight but denies actively coughing at time of pain onset. The patient reports pain is worse with direct palpation and lifting both arms above her head, denies any recent travel, lower extremity complaint, or pleurisy. The patient denies any recent trauma or cardiac history. Patient reports she has been experiencing increased stress as she is preparing to move out of state and live alone for the 1st time in her life. Related Data Previous Rx's ?Medication ?Instructions ?Recorded polyethylene glycol 3350 17 gram 17 g PO BID #30 ea oral powder packet (Miralax) cefuroxime axetil 250 mg tablet 500 mg (2 x 250 mg) PO BID 7 days 12/13/20 #28 tabs diazepam 5 mg tablet (Valium) 5 mg PO TID PRN muscle s pasm #10 12/13/20 tabs ibuprofen 600 mg tablet 600 mg PO Q6H PRN pain #30 t abs 12/13/20 lidocaine 4 % topical patch 1 patch topical DAILY PRN pain #10 12/13/20 ea ondansetron 4 mg disintegrating 4 mg PO Q8H PRN nausea and 12/13/20 tablet vomiting #20 tabs amoxicillin 875 mg-potassium 1 tab PO Q12H 10 days #20 tabs 06/10/21 clavulanate 125 mg tablet (Augmentin) dexamethasone 6 mg tablet 6 mg PO DAILY 4 days #4 tabs 06/10/21 lidocaine HCl 2 % mucosal solution 10 ml mucous membra ne QID PRN pain 06/10/21 (Lidocaine Viscous) #200 mL naproxen 500 mg tablet (Naprosyn) 500 mg PO BID #20 ta bs 02/19/22 albuterol sulfate 90 mcg/actuation 1 puff inhalation Q ID PRN 09/26/24 aerosol inhaler shortness of breath or wheez ing #6.7 grams prednisone 50 mg tablet 50 mg PO DAILY 3 days #3 tab s 09/26/24 Allergies Allergy/AdvReac Type Severity Reaction Status Date / Time No Known Allergies (No Known Allergy Verified 06/17/25 01:22 Allergies*) Review of Systems 2 Review of Systems: Yes all other systems are reviewed and are negative PMFSH Past Medical History Medical History Anemia Asthma Non-alcoholic fatty liver disease Surgical History Hx of lymph node excision Social History Social History Smoked in Last 30 Days: No Use of substances other than those prescribed or required for medical reasons: No Advance Directives: No Advance Directives Information Provided: Yes Do you have a plan to hurt others: No Plan Physical Exam 2 Vital Signs: Vital Signs: Last Vital Signs Temp 97.8 F 06/17/25 04:50 Pulse 91 06/17/25 04:50 Resp 16 06/17/25 04:50 BP 100/44 L 06/17/25 04:50 Pulse Ox 99 06/17/25 04:50 O2 Del Method Room Air 06/17/25 04:50 BMI result Body Mass Index 44.6 CONSTITUTIONAL: The patient appears non-toxic, well nourished and in no acute distress. Vital signs as documented. HEAD: Atraumatic, normocephalic. EYES: EOMs grossly intact, pupils equal, conjunctiva clear, no exudate. ENT: Nares patent, no discharge. Airway patent, no audible stridor, visible mucosa is pink and moist without noted lesions. NECK: Trachea is midline, no obvious masses or gross abnormalities. CHEST: Symmetric movement, normal appearance. Positive tenderness to palpation of the left sternal border, flow reproduce the patient's pain. LUNGS: LS present and CTAB, no w/r/r. Non-labored work of breathing. No pain with deep respiration. CARDIAC: Regular Rhythm, S1/S2 appreciated, no murmurs, rubs or gallops. ABDOMEN: Abdomen soft and non-tender x4 quadrants, no palpable masses or organomegaly. : Deferred. EXTREMITIES: Normal tone, moves all extremities spontaneously without reported pain. No obvious acute injury or deformity noted. Pushing and pulling against resistance with the upper extremities does not recreate the patient's pain. Active lifting of both arms above the head while standing does reproduce the patient's pain. NEURO: Alert and oriented x3, CN II-XII appear grossly intact. Cerebellar Functioning grossly intact. No obvious sensory or motor deficits. Speech clear and appropriate. PSYCH: normal affect, appropriate eye contact, fluid speech, with appropriate response to questioning. No reported suicidality or homicidality. SKIN: Warm, dry, color appropriate, normal turgor. No rashes noted. Medications Administered Discontinued Medications Generic Name Dose Route Start Last Admin Trade Name Juan Pabloq PRN Reason Stop Dose Admin Acetaminophen 975 mg 06/17/25 03:41 06/17/25 03:49 Acetaminophen 325 Mg Tablet PO 06/17/25 03:42 975 mg ONCE ONE Administration Ketorolac Tromethamine 30 mg 06/17/25 03:41 06/17/25 03:50 Ketorolac Tromethamine 30 Mg/Ml Vial IM 06/17/25 03:42 30 mg ONCE ONE Administration Lidocaine 1 patch 06/17/25 03:41 06/17/25 03:52 Lidocaine 4 % Patch Adh..Patch TRANSDERMA 06/17/25 03:42 1 patch ONCE ONE Administration Protocol Medical Decision Making Medical Decision Making [facility] Narrative: 1:49 AM 06/17/2025 (Mateo PADRON): The patient is a 25-year-old female presenting to the ED for evaluation of sharp pain in the left sternal border which began while at rest at home while lying in bed. Patient reports pain began suddenly and without provocation, lasted approximately 1 minute, and then became less severe and more dull in nature. The patient reports she was recently seen at [facility] for UTI symptoms, at that time was treated with Bactrim. Patient reports UTI symptoms have improved dramatically, however patient reports since the day after being seen in the ED, she has been experiencing viral URI symptoms with sinus congestion, generalized malaise and fatigue, and cough. The patient reports she was coughing earlier tonight but denies actively coughing at time of pain onset. The patient reports pain is worse with direct palpation and lifting both arms above her head, denies any recent travel, lower extremity complaint, or pleurisy. The patient denies any recent trauma or cardiac history. Patient reports she has been experiencing increased stress as she is preparing to move out of state and live alone for the 1st time in her life. On exam the patient's pain is reproducible with lifting her arms above her head, and with direct palpation of the sternum. The patient has no pain with deep respiration, patient is not tachycardic, hypoxic, or using OCPs. Patient is low risk by well's, negative by PERC criteria. The patient's EKG is nonischemic. The patient is most likely suffering from chest wall pain, likely costochondritis versus less likely muscle strain. We will obtain basic laboratory evaluation, viral swabs, troponin, and chest x-ray. We will treat patient's pain with Toradol and reassess. 3:40 AM 06/17/2025 (Mateo PADRON): The patient's laboratory evaluation has resulted and is reassuring, no leukocytosis, significant anemia, electrolyte abnormality, or REY. The patient's LFTs are unremarkable. Troponin is negative. Viral swabs are negative. The patient's chest x-ray shows no cardiopulmonary process. Patient will be treated with Toradol, Tylenol, and lidocaine patch for suspected costochondritis versus chest wall strain, and we will plan for discharge with PCP follow up pending improvement in symptoms. 5:10 AM 06/17/2025 (Mateo PADRON): The patient was sleeping comfortably in the ED, upon waking patient reports symptoms have improved. Based on reassuring exam and workup the patient reports feeling reassured and is comfortable with plan for discharge home. Patient will be discharged with OTC analgesics and strict return instructions. Admission/Observation Consideration of admission/observation: Escalation of care including admission/observation considered Lab Data MDM Lab Attestation statement: I reviewed the patient's lab results. 06/17/25 02:29 06/17/25 02:29 Labs: Lab Results 10/24/25 10/24/25 Range/Units 02:28 02:29 WBC 9.3 (4.8-10.8) X10*3/uL RBC 4.30 (4.20-5.50) X10*6/uL Hgb 12.0 (12.0-16.0) g/dl Hct 36.9 L (37.0-47.0) % MCV 85.8 (80.0-98.0) fL MCH 27.9 (27.0-33.0) pg MCHC 32.5 (31.0-35.0) g/dl RDW 13.3 (11.0-16.0) % Plt Count 338 (160-400) X10*3/uL MPV 10.7 (9.4-12.3) fL Immature Gran % (Auto) 0.2 (0.0-0.4) % Neut % (Auto) 61.1 (45-73) % Lymph % (Auto) 30.0 (20-40) % [place] % (Auto) 6.3 (2-11) % Eos % (Auto) 1.9 (0-4) % Baso % (Auto) 0.5 (0-2) % Lymph # (Auto) 2.8 (1.2-4.9) X10*3/uL [place] # (Auto) 0.6 (0.1-1.2) X10*3/uL Eos # (Auto) 0.2 (0.0-0.4) X10*3/uL Baso # (Auto) 0.1 (0.0-0.2) X10*3/uL Abs Immat Gran (auto) 0.02 (0.00-0.03) X10*3/uL Absolute Neuts (auto) 5.7 (2.0-8.3) x10*3/uL Absolute Nucleated RBC 0.000 (0.0-0.012) X10*3/uL Nucleated RBC % (auto) 0.0 (0.0-0.2) /100WBC Sodium 142 (135-145) mmol/L Potassium 3.9 (3.3-5.1) mmol/L Chloride 110 H (96-108) mmol/L Carbon Dioxide 24 (22-29) mmol/L Anion Gap 12 (12-20) BUN 9 (9-16) mg/dL Creatinine 0.82 (0.5-1.4) mg/dL Estim Creat Clear Calc 166.4 Estimated GFR > 60 Random Glucose 114 (60-115) mg/dL Calcium 9.2 (8.4-10.2) mg/dL Total Bilirubin 0.1 (0.0-1.0) mg/dL AST 24 (5-31) U/L ALT 24 (0-31) U/L Alkaline Phosphatase 57 (39-117) U/L Troponin I High Sens < 2.7 (<3.5-17.0) ng/L Total Protein 7.0 (6.5-8.0) g/dL Albumin 4.1 (3.5-5.0) g/dL COVID-19 (RAVEN) Negative (Negative) COVID-19 Clin Com See Note Influenza Type A (NABIL) Negative (Negative) Influenza Type B (NABIL) Negative (Negative) Influenza A & B Note See Note Independent Interpretation I performed an independent interpretation of an: EKG (EKG shows sinus rhythm with a rate of 81, no evidence of acute ischemia, no ST elevation, no ectopy. QTC 420. Compared to previous on 09/25/2024 there are no significant morphology the changes. ) Radiology Impression Discussion of test interpretation with radiology: I have reviewed the radiologist's reading. Radiologist Impression: 1 view chest x-ray. Comparison: CR - XR CHEST 1V - 09/25/24 23:55 EST Findings: No consolidation, pneumothorax, or effusion. Heart size normal. Impression: 1. No acute cardiopulmonary process. No focal pulmonary consolidation. This document has been electronically signed by: Marshall Daugherty MD on 06/17/2025 01:42:14 Discharge Plan Discharge Clinical Impression: Acute costochondritis, Chest wall pain Patient Disposition: Home, Self-Care Instructions: Chest Wall Pain (ED), Costochondritis (ED) Additional Instructions: Thank you for choosing [facility] Emergency Department for your care today. Thankfully your EKG, laboratory evaluation, chest x-ray, and exam today are all reassuring. There is no evidence of any acute cardiac, pulmonary, infectious, coagulopathic (blood clot), metabolic, or other dangerous cause for your symptoms. At this time there is no indication for admission to the hospital or continued ED observation, and it is safe to discharge you home. The reproducible nature of your symptoms, and characteristic of the symptoms themselves, in the setting of a reassuring ED workup, indicates your symptoms are likely secondary to inflammation of your chest wall, possibly of the cartilage between your ribs and sternum, a condition known as costochondritis. You should take alternating (staggered) doses of ibuprofen 600mg and Tylenol 1000mg every 4 hours as needed for any additional pain. Please follow up with your primary care physician for re-evaluation, additional management of your symptoms, and continued preventative care. If you do not have a primary care physician, please call the [facility] at [phone] to establish a new primary care physician. While waiting to establish your new primary care physician, you can call our Walk-in Care Clinic at [phone] for non-emergency needs. Please return to the emergency department if you develop a severe or sudden change in your symptoms, a fever over 100.4 that does not improve with Tylenol or Ibuprofen, recurrent vomiting, or any other new or worsening symptoms or concerns. Prescriptions: No Action cefuroxime axetil 250 mg tablet 500 mg PO BID 7 Days Qty: 28 0RF lidocaine 4 % adhesive patch,medicated 1 patch topical DAILY PRN (Reason: pain) Qty: 10 0RF Rx Instructions: may leave on for up to 12 hrs ibuprofen 600 mg tablet 600 mg PO Q6H PRN (Reason: pain) Qty: 30 0RF ondansetron 4 mg tablet,disintegrating 4 mg PO Q8H PRN (Reason: nausea and vomiting) Qty: 20 0RF diazepam [Valium] 5 mg tablet 5 mg PO TID PRN (Reason: muscle spasm) Qty: 10 0RF polyethylene glycol 3350 [Miralax] 17 gram powder in packet 17 g PO BID Qty: 30 0RF amoxicillin-pot clavulanate [Augmentin] 875-125 mg tablet 1 tab PO Q12H 10 Days Qty: 20 0RF dexamethasone 6 mg tablet 6 mg PO DAILY 4 Days Qty: 4 0RF lidocaine HCl [Lidocaine Viscous] 2 % solution 10 ml mucous membrane QID PRN (Reason: pain) Qty: 200 0RF Rx Instructions: Gargle and spit naproxen [Naprosyn] 500 mg tablet 500 mg PO BID Qty: 20 0RF prednisone 50 mg tablet 50 mg PO DAILY 3 Days Qty: 3 0RF albuterol sulfate 90 mcg/actuation HFA aerosol inhaler 1 puff inhalation QID PRN (Reason: shortness of breath or wheezing) Qty: 6.7 0RF Referrals: Sharon Han SOAKER HELPER [Primary Care Provider, Primary Care] Clinical Impression: Chest wall pain; Acute costochondritis Print Language: Upper Sorbian
--- OUTSIDE RECORDS SUMMARY | 2025-06-17 01:56 | XMS_ITS | Encounter Summary ---
Author Organization [facility] [employer] Address [address] [place] [address] Care Team Providers Care Baster Hand Name Role Phone Sharon Han CNP Primary Care Provider [phone] Reason for Visit * Reason Onset Date Comments PCP Contact 06/14/2025 Encounter Details Date Type Department Care Team ([facility] Contact Info) Description 06/14/2025 Telephone [facility] [address] [place] [address] Sharon Han CNP [address] [place] [address] PCP Contact Social History Tobacco Use Types Packs/Day Years [...] AM EDT documented as of this encounter Miscellaneous Notes * Telephone Encounter - Daniela Ackerman RN - 06/14/2025 11:43 AM EDT TC to pt to status check after recent ER visit and triage call last night about reaction to antibiotics. No answer. VM left instructing pt to return call to office. documented in this encounter Plan of Treatment Not on file documented as of this encounter Visit Diagnoses Not on filedocumented in this encounter Additional Health Concerns Assessment Noted Time PHQ-9 Depression Total Score: 4 05/18/20 25 2:21 PM EDT documented as of this encounter Care Teams Baster Hand Relationship Specialty Start Date End Date Sharon Han CNP [address] [place] [address] PCP - General Family Medicine 05/18/25 documented as of this encounter
--- OUTSIDE RECORDS SUMMARY | 2025-06-17 01:56 | XMS_ITS | Clinical Summary ---
Author Organization [facility] Address [address] [place] [address] Phone Care Team Providers Care Acute Care Clinical Nurse Specialist Name Role Phone William Romero MD Primary Care Provider [phone] Allergies No known active allergies Surgical History Surgery Date Site/Laterality Comments LYMPH NODE DISSECTION Medical History Medical History Date Comments Asthma Fatty liver Social History Tobacco Use Types Packs/Day Years Used Date Smoking Tobacco: Never Smokeless Tobacco: Never Tobacco Cessation:Counseling Given: Not Answered Alcohol Use Standard Drinks/Week Comments Never 0 (1 standard drink = 0.6 oz pur e alcohol) Comments Unknown Sex and Gender Information Value Date Recorded Sex Assigned at Female 09/26/2024 11:41 PM EST Legal Sex Female 9:03 AM EST Gender Identity Female 09/26/2024 11:41 PM EST Sexual Orientation Straight 09/26/2024 11 :41 PM EST Obstetrics History Last Filed Vital Signs Vital Sign Reading Time Taken Comments Blood Pressure 137/99 09/29/2024 5:26 AM EST Pulse 103 09/29/2024 5:26 AM EST Temperature 37.2 C (99 F) 09/29/2024 5:26 AM EST Respiratory Rate 20 09/29/2024 5:26 AM EST Oxygen Saturation 96% 09/29/2024 5:26 AM EST Inhaled Oxygen Concentration - - Weight 136 kg (300 lb) 09/29/2024 2:22 AM EST Height 180.3 cm (5' 11 ) 09/29/2024 2:22 AM EST Body Mass Index 41.84 09/29/2024 2:22 AM EST Plan of Treatment Health Maintenance Due Date Last Done Comments Pneumococcal Vaccine: Pediatrics (0 to 5 Years) and At-Risk Patients (6 to 49 Years) (1 of 1 - PPSV23, PCV20, or PCV21) 2006 08/07/2001, 2000, 2000, Additional history exists Cervical Cancer Screening: Pap Smear 2021 HIV Screening 07/28/2022 Hepatitis C Screening 07/28/2022 Social Influencers of Health Screening 07/28/2022 Depression Screening 08/25/2024 COVID-19 Vaccine ( season) 2025 10/21/2021 Influenza Vaccine (#1) 2025 4, 09/24/2013, 10/23/2011, Additional history exists DTaP,Tdap,and Td Vaccines (8 - Td or Tdap) 05/28/2027 05/28/2017, 10/23/2011, 07/12/2004, Additional history exists RSV Immunization Adult Patients (1 - 1-dose 75+ series) 2075 Hepatitis B Vaccines Completed 02/05/2001, 2000, 2000 HIB Vaccines Completed 08/07/2001, 10/24, 2000, Additional history exists IPV Vaccines Completed 07/12/2004, 10/23, 2000, Additional history exists MMR Vaccines Completed 07/12/2004, 08/07/2001 Meningococcal ACWY Vaccine Aged Out 10/23/2011 N o longer eligible based on patient's age to complete this topic Varicella Vaccines Completed 10/23/2011, 05/08/2001 HPV Vaccines Completed 09/24/2013, 10/23/2011 Hepatitis A Vaccines Aged Out No long er eligible based on patient's age to complete this topic Meningococcal B Vaccine Aged Out No l onger eligible based on patient's age to complete this topic RSV Immunization Patients Under 20 months Aged Out No longer eligible based on patient's age to complete this topic Care Teams Acute Care Clinical Nurse Specialist Relationship Specialty Start Date End Date William Romero MD [address] [place] [address] PCP - General Internal Medicine 09/26/24
--- OUTSIDE RECORDS SUMMARY | 2025-06-17 01:56 | XMS_ITS | Clinical Summary ---
Author Organization [employer] Address [address] [facility] 7t [place] [address] Care Team Providers Care Automat Car Attendant Name Role Phone Sharon Han FIBERGLASS INSULATION INSTALLER Primary Care Provider [phone] Allergies No known active allergies Medications albuterol 108 (90 Base) MCG/ACT inhalerIndication s:Mild intermittent asthma without complication Inhale 2 puffs every 4 (four) hours if needed for wheezing. 18 g 05/18/2025 05/18/20 26 Active ibuprofen 600 MG tabletIndications :Menorrhagia with regular cycle Take 1 tablet (600 mg) by mouth 3 times daily. 90 tablet 05/18/2025 06/17/20 25 Active Tirzepatide-Weigh t Management (Zepbound) 2.5 MG/0.5ML solution auto-injectorIndi cations:Class 3 severe obesity with serious comorbidity and body mass index (BMI) of 45.0 to 49.9 in adult, unspecified obesity type (HCC) Inject 0.5 mL (2.5 mg) under the skin 1 (one) time per week. 2 mL 05/18/2025 06/17/20 25 Active Active Problems Problem Noted Date Diagnosed Date [...] Encounters Date Type Department Care Team Description 06/17/2025 Orders Only [facility] External Provider, [facility] 06/14/2025 Telephone [facility] [address] [place] [address] Sharon Han CNP PCP Contact 06/07/2025 Telephone [facility] [address] [place] [address] Sharon Han CNP chart prep 06/02/2025 Travel 06/01/2025 Telephone [facility] [address] [place] [address] Sharon Han CNP chart prep 05/27/2025 Population Health Risk Score [facility] () Department [address] [phone] Provider, Population Health Generic 05/26/2025 Telephone [facility] [address] [place] [phone] Sharon Han CNP Prior Authorization 05/23/2025 Results Follow-Up [facility] [address] [place] [address] Sharon Han CNP HIV-1/2 Antigen and Antibodies, Fourth Generation, with Reflexes, Hepatitis C Antibody with Reflex to HCV, RNA, Quantitative, Real-Time PCR, CBC auto differential, Additional followed-up results: 4 05/18/2025 2:00 PM EDT Office Visit [facility] [address] [place] [address] Sharon Han CNP Encounter for physical examination (Primary Dx); Menorrhagia with regular cycle; Mild intermittent asthma without complication; Encounter for immunization; Dietary counseling; Exercise counseling; Class 3 severe obesity with serious comorbidity and body mass index (BMI) of 45.0 to 49.9 in adult, unspecified obesity type 05/18/2025 Telephone [facility] [address] [place] [address] Sharon Han CNP 05/18/2025 Travel 05/12/2025 Patient Outreach [facility] [address] [place] [phone] Fox Amador MD Pre-visit Planning (SDOH screening negative and Tobacco screening negative) 04/27/2025 Telephone [facility] [address] [place] [address] Filiberto Navaha GA chart prep 04/18/2025 Telephone [facility] [address] [place], [place] [phone] Fox Amador MD 04/13/2025 Telephone [facility] [address] [place] [address] Fox Amador MD new pt from Last 3 Months Immunizations Immunization Administration Dates Next Due DTaP 07/12/2004, 2,2000,09/25,2000 HPV, Quadrivalent 09/24/2013,10/23/2011 Hep B, Unspecified 02/05/2001,2000, 000 HiB, unspecified 08/07/2001, 1,2000,07/16 IPV 07/12/2004, 2,2000,07/16 Influenza Whole 06/07/2009,10/12/2008,07/17/2007 Influenza, IIV3, injectable 06/09/2014, 4,10/23/2011 Influenza, seasonal, injecta ble, preservative free 05/18/2025 MMR 07/12/2004,08/07/2001 Meningococcal ACWY, unspecified 10/23/2011 Pfizer Covid-19 Vaccine 12+ caridad-sucrose (Ramirez Cap) 10/21/2021 Pneumococcal Conjugate PCV 20 05/18/2025 Pneumococcal Conjugate [...] 05/18/2025 2:14 PM EDT Plan of Treatment Health Maintenance Due Date Last Done Comments Pap Smear 2021 Alcohol/Substance Use Screening 05/18/2026 05/18/2025 COVID-19 Vaccine ( season) 2026 10/21/2021 Postponed from 04/25/2025 (Patient Refused) Depression Screening [...] 09/24/2013, 10/23/2011 Influenza Vaccine Completed 05/18/2025, , 06/09/2014, Additional history exists Pneumococcal Vaccine: Pediatrics (0 to 5 Years) and At-Risk Patients (6 to 49) Years Completed 05/18/2025, 08/07/2001, 2000, Additional history exists HIV Screening Completed 05/19/2025 Hepatitis C Screening Completed 05/19/2025 Hepatitis A Vaccines Aged Out No long [...] Procedure Name Priority Date/Time Associated Diagnosis Comments XR CHEST 1 VIEW Routine 06/17/2025 1:42 AM EDT HEMOGLOBIN A1C Routine 05/19/2025 3:10 PM EDT Encounter for physical examination LIPID PANEL, STANDARD Routine 05/19/2025 3:10 PM EDT Encounter for physical examination TSH W/REFLEX TO FT4 Routine 05/19/2025 3 :10 PM EDT Encounter for physical examination COMPREHENSIVE METABOLIC PANEL Routine 05/19/2025 3:10 PM EDT Encounter for physical examination CBC WITH AUTO DIFFERENTIAL Routine 05/19/2025 3:10 PM EDT Encounter for physical examination HEPATITIS C AB W/REFL TO HCV RNA, QN, PCR Routine 05/19/2025 3:10 PM EDT Encounter for physical examination HIV 1/2 ANTIGEN/ANTIBODY, FOURTH GENERATION W/RFL Routine 05/19/2025 3:10 PM EDT Encounter for physical examination from Last 3 Months Results * XR Chest 1 View (06/17/2025 1:42 AM EDT) Anatomical Region Laterality Modality Chest Radiographic Ernestina ging 06/17/2025 1:42 AM EDT Narrative 06/17/2025 1:43 AM EDT [address] [address] XRay Report Signed Patient: Mel Angel MR#: [id number] 5 : 2000 Acct:[id number] Age/Sex: 25 / F ADM Date: 06/17/25 Loc: .ED Attending Dr: Ordering Physician: Yayo Edgar MD Date of Service: 06/17/25 Procedure(s): XR chest 1V Accession Number(s): [id number] cc: Yayo Edgar MD; Sharon Han SHIPPING TEAM LEADER Reason for Exam: cp/cough CLINICAL HISTORY: cp cough 1 view chest x-ray. Comparison: CR - XR CHEST 1V - 09/25/24 23:55 EST Findings: No consolidation, pneumothorax, or effusion. Heart size normal. Impression: 1. No acute cardiopulmonary process. No focal pulmonary consolidation. This document has been electronically signed by: Marshall Daugherty MD on 06/17/2025 01:42:14 Dictated By: Marshall Daugherty MD Signed By: <Electronically signed by Marshall Daugherty MD in OV> 06/17/25 0143 DD/ 0142 TD/TT: 06/17/25 0142 Hardboard Grinder: Procedure Note Donotuseinterpreter, Image - 06/17/2025 [place] [address] XRay Report Signed Patient: Mel AngelMR#: [id number] 5 : 2000Acct:[id number] Age/Sex: 25 / FADM Date: 06/17/25 Loc: .ED Attending Dr: Ordering Physician: Yayo Edgar MD Date of Service: 06/17/25 Procedure(s): XR chest 1V Accession Number(s): [id number] cc: Yayo Edgar MD; Sharon Han SHIPPING TEAM LEADER Reason for Exam: cp/cough CLINICAL HISTORY: cp cough 1 view chest x-ray. Comparison: CR - XR CHEST 1V - 09/25/24 23:55 EST Findings: No consolidation, pneumothorax, or effusion. Heart size normal. Impression: 1. No acute cardiopulmonary process. No focal pulmonary consolidation. This document has been electronically signed by: Marshall Daugherty MD on 06/17/2025 01:42:14 Dictated By: Marshall Daugherty MD Signed By: <Electronically signed by Marshall Daugherty MD in OV> 06/17/25142 DD/ 1 TD/TT: 06/17/25141 Hardboard Grinder: [facility] External Provider IMG XR PROCEDURES Final Result * TSH W/Reflex to FT4 (05/19/2025 3:10 PM EDT) Pathologist [facility] TSH reflex Free T4 1.29 0.32 - 4.0 uIU/mL [facility] Blood Venous blood specimen / Unknown 05/19/2025 3:10 PM EDT 05/19/2025 5:38 PM EDT [facility] LAB BLOOD ORDERABLES Sherry l Result Performing Organization Address City/State/[facility] Co de Phone Number [facility] [address] [place] [phone] * CBC auto differential (05/19/2025 3:10 PM EDT) Pathologist [facility] White Blood Count 8.9 4.8 - 10.8 X10*3/uL [facility] Red Blood Count 4.49 4.20 - 5.50 X10*6/uL [facility] Hemoglobin 12.7 12.0 - 16.0 g/dl [facility] Hematocrit 39.1 37.0 - 47.0 % [facility] Mean Corpuscular Volume 87.1 80.0 - 98.0 fL [facility] Mean Corpuscular Hemoglobin 28.3 27.0 - 33.0 pg [facility] Mean Corpuscular HGB Conc 32.5 31.0 - 35.0 g/dl [facility] Red Cell Distribution Width 13.5 11.0 - 16.0 % [facility] Platelet Count 357 160 - 400 X10*3/uL [facility] Mean Platelet Volume 11.8 9.4 - 12.3 fL [facility] Neutrophils Percent Auto 70.1 45 - 73 % [facility] Imm Gran Pct Auto 0.2 0.0 - 0.4 % [facility] Lymphocytes Percent Auto 23.2 20 - 40 % [facility] Monocytes Percent Auto 5.8 2 - 11 % [facility] Eosinophils Percent Auto 0.3 0 - 4 % [facility] Basophils Percent Auto 0.4 0 - 2 % [facility] NRBC Pct Auto 0.0 0.0 - 0.2 /100WBC [facility] Neutrophils Absolute Auto 6.3 2.0 - 8.3 x10*3/uL [facility] Imm Gran Abs Auto 0.02 0.00 - 0.03 X10*3/uL [facility] Lymphocytes Absolute Auto 2.1 1.2 - 4.9 X10*3/uL [facility] Monocytes Absolute Auto 0.5 0.1 - 1.2 X10*3/uL [facility] Eosinophils Absolute Auto 0.0 0.0 - 0.4 X10*3/uL [facility] Basophils Absolute Auto 0.0 0.0 - 0.2 X10*3/uL [facility] NRBC Abs Auto 0.000 0.0 - 0.012 X10*3/uL [facility] Blood Venous blood specimen / Unknown 05/19/2025 3:10 PM EDT 05/19/2025 5:38 PM EDT [facility] LAB BLOOD ORDERABLES Sherry l Result [facility] [address] [place], [place] [phone] * Hepatitis C Antibody with Reflex to HCV, RNA, Quantitative, Real-Time PCR (05/19/2025 3:10 PM EDT) Hepatitis C Antibody Nonreactive Nonreactive [facility] Comment:Antibodies to HCV no t detected; does not exclude early acuteHCV infection. Blood Venous blood specimen / Unknown 05/19/2025 3:10 PM EDT 05/19/2025 5:38 PM EDT [facility] LAB BLOOD ORDERABLES Sherry l Result Performing Organization Address [facility]/ZIP Co de Phone Number [facility] [address] [place] [address] [phone] * HIV-1/2 Antigen and Antibodies, Fourth Generation, with Reflexes (05/19/2025 3:10 PM EDT) HIV AB/AG Nonreactive Nonreactive [facility] Comment:HIV-1 p24 Ag and/or HIV-1/HIV-2 Ab not detected.A test result that is nonreactive does not exclude thepossibility of exposure to or infection with HIV-1 and/orHIV-2. Nonreactive results in this assay for individualswith prior exposure to HIV-1 and/or HIV-2 may be due toantigen and antibody levels that are below the limit ofdetection of this assay.The i[employer] HIV Ag/Ab Combo assay result andsupplemental assay results should be interpreted inconjunction with the patient's clinical presentation,history and other laboratory results. If the results areinconsistent with clinical evidence, additional testing issuggested to confirm the result. Blood Venous blood specimen / Unknown 05/19/2025 3:10 PM EDT 05/19/2025 5:38 PM EDT [facility] LAB BLOOD ORDERABLES Sherry l Result Performing Organization Address City/[facility]/ZIP Co de Phone Number [facility] [address] [place] [phone] * Hemoglobin A1c (05/19/2025 3:10 PM EDT) Hemoglobin A1c 5.8 <6.0 % [facility] Comment:Hemoglobin A1C Refer ence Range Adults: 4.8 - 6.0 % Non diabetic: < 6.0 % Goal: < 7.0 %Additional Action Suggested: > 8.0 %Note: Hemoglobin A1c results are invalid for patients with abnormal amounts of HbF. Blood transfusions may impact the HbA1c concentration in the patient sample. Estimated Average Glucose 120 mg/dL [facility] Comment:eAG = Estimated ave rage glucose which is %A1C expressed asaverage glucose, using the formula of the Y4Z-YnxodreHcowoqh Glucose study (ADAG), Diabetes Care, Vol.31,#8,Mar. 2007 Blood Venous blood specimen / Unknown 05/19/2025 3:10 PM EDT 05/19/2025 5:38 PM EDT [facility] LAB BLOOD ORDERABLES Sherry l Result [facility] [address] [place] [phone] * (ABNORMAL) Lipid Panel, Standard (05/19/2025 3:10 PM EDT) Triglycerides 134 <150 mg/dL [facility] Comment:Desirable Triglyceri de: less than 150 mg/dLBorderline High Triglyceride 150-199 mg/dLHigh Triglyceride: 200-499 mg/dLVery High Triglyceride: greater than or equal to 5OO mg/dL Cholesterol 188 <200 mg/dL [facility] Comment:Desirable Cholestero l: less than 200 mg/dLBorderline High Cholesterol: 200-239 mg/dLHigh Cholesterol: greater than 239 mg/dL LDL Cholesterol Calculated 131(H) <100 mg/dL [facility] Comment:Desirable LDL: less than 100 mg/dLNear Optimal/Above Optimal LDL: 110- 129 mg/dLBorderline High LDL: 130-159 mg/dLHigh LDL: 160-189 mg/dLVery High LDL: greater than or equal to 190 mg/dL HDL Cholesterol 31(L) >40 mg/dL [facility] Comment:Desirable HDL: great er than 40 mg/dL Note: This HDL assay may give artificially low results in patients with liver disease. Blood Venous blood specimen / Unknown 05/19/2025 3:10 PM EDT 05/19/2025 5:38 PM EDT [facility] FIBERGLASS INSULATION INSTALLER LAB BLOOD ORDERABLES Sherry l Result Performing Organization Address City/[facility]/ZIP Co de Phone Number [facility] [address] [place] [phone] * (ABNORMAL) Comprehensive Metabolic Panel (05/19/2025 3:10 PM EDT) Sodium 140 135 - 145 mmol/L [facility] Potassium 4.4 3.3 - 5.1 mmol/L [facility] Chloride 107 96 - 108 mmol/L [facility] Carbon Dioxide 27 22 - 29 mmol/L [facility] Anion Gap 10(L) 12 - 20 [facility] Urea Nitrogen (BUN) 10 9 - 16 mg/dL [facility] Creatinine, Serum 0.72 0.5 - 1.4 mg/dL [facility] Estimated Glomerular Filt Rate >60 [facility] Comment:Chronic Kidney Disea se: Estimated GFR < 60 mL/min/1.81w5Pubhub Kidney Disease: Estimated GFR < 15 mL/min/1.73m2 Glucose 95 60 - 115 mg/dL [facility] Calcium 9.2 8.4 - 10.2 mg/dL [facility] Bilirubin, Total 0.4 0.0 - 1.0 mg/dL [facility] Aspartate Amino Transferase 24 5 - 31 U/L [facility] Alanine Aminotransferase 19 0 - 31 U/L [facility] Total Protein 7.2 6.5 - 8.0 g/dL [facility] Albumin Level 4.2 3.5 - 5.0 g/dL [facility] Alkaline Phosphatase 64 39 - 117 U/L [facility] Blood Venous blood specimen / Unknown 05/19/2025 3:10 PM EDT 05/19/2025 5:38 PM EDT [facility] FIBERGLASS INSULATION INSTALLER LAB BLOOD ORDERABLES Sherry l Result Performing Organization Address City/[facility] Co de Phone Number [facility] [address] [place] [phone] from Last 3 Months Insurance [facility] C3 Care Teams Automat Car Attendant Relationship Specialty Start Date End Date Sharon Han CNP [address] [place] [phone] PCP - General Family Medicine 05/18/25
--- OUTSIDE RECORDS SUMMARY | 2025-06-17 01:56 | XMS_ITS | Encounter Summary ---
Author Organization [employer] Address [address] [facility] [facility] [address] [place] [address] Care Team Providers Care Manager Of Distribution Name Role Phone Guille Fernandoelizabeth ADRIAN Primary Care Provider [phone] Encounter Details Date Type Department Care Team (Late st Contact Info) Description 06/17/2025 Orders Only [facility] External Provider, [facility] Social History Tobacco Use Types Packs/Day Years [...] AM EDT documented as of this encounter Plan of Treatment Not on file documented as of this encounter Procedures Procedure Name Priority Date/Time Associated Diagnosis Comments XR CHEST 1 VIEW Routine 06/17/2025 1:42 AM EDT documented in this encounter Results * XR Chest 1 View (06/17/2025 1:42 AM EDT) Anatomical Region Laterality Modality Chest Radiographic Ernestina ging 06/17/2025 1:42 AM EDT Narrative 06/17/2025 1:43 AM EDT [place] [address] XRay Report Signed Patient: Mel Angel MR#: [id number] 5 : 2000 Acct:[id number] Age/Sex: 25 / F ADM Date: 06/17/25 Loc: HO.ED Attending Dr: Ordering Physician: Yayo Edgar MD Date of Service: 06/17/25 Procedure(s): XR chest 1V Accession Number(s): [id number] cc: Yayo Edgar MD; Sharon Han NP Reason for Exam: cp/cough CLINICAL HISTORY: cp [...] in OV> 06/17/25142 DD/ 1 TD/TT: 06/17/25141 Geoscience Technician: Procedure Note Donotuseinterpreter, Image - 06/17/[address] [address] XRay Report Signed Patient: Mel AngelMR#: [id number] 5 : 2000Acct:[id number] Age/Sex: 25 / FADM Date: 06/17/25 Loc: HO.ED Attending Dr: Ordering Physician: Yayo Edgar MD Date of Service: 06/17/25 Procedure(s): XR chest 1V Accession Number(s): [id number] cc: Yayo Edgar MD; Sharon Han LOSS PREVENTION ASSOCIATE Reason for Exam: cp/cough CLINICAL HISTORY: cp [...] OV> 06/17/25 0143 DD/ 0142 TD/TT: 06/17/25 014 Geoscience Technician: [facility] External Provider IMG XR PROCEDURES Final Result documented in this encounter Visit Diagnoses Not on filedocumented in this encounter Additional Health Concerns Assessment Noted Time PHQ-9 Depression Total Score: 4 05/18/20 25 2:21 PM EDT documented as of this encounter Care Teams Manager Of Distribution Relationship Specialty Start Date End Date Sharon Han CNP [address] [place] [phone] PCP - General Family Medicine 05/18/25 documented as of this encounter
--- OUTSIDE RECORDS SUMMARY | 2025-06-17 01:56 | XMS_ITS | Encounter Summary ---
Author Organization [employer] Address [address] [place] [address] Care Team Providers Care It Help Desk Analyst Name Role Phone Sharon Han CNP Primary Care Provider [phone] Reason for Visit * Reason Onset Date Comments Prior Authorization 05/26/2025 Encounter Details Date Type Department Care Team ([facility] st Contact Info) Description 05/26/2025 Telephone [facility] [address] [place], [place] [phone] Sharon Han CNP [address] [place] [address] Prior Authorization Social History Tobacco Use Types Packs/Day Years [...] Telephone Encounter - Angelia Resendiz LPN - 05/31/2025 11:04 AM EDT Message below noted , However Documentation was generated correctly . pt doesn't have does not meetinsurance requirements. Sending to pcp as an FYI Tc from pt stating PA for Zepbound was denied due to not having enough information them to approve it. If any questions please contact pt at [phone]. * Telephone Encounter - Paolo Alas - 05/26/2025 2:21 PM EDT Tc from pt stating PA for Zepbound was denied due to not having enough information them to approve it. If any questions please contact pt at [phone]. documented in this encounter Plan of Treatment Not on file documented as of this encounter Visit Diagnoses Not on filedocumented in this encounter Additional Health Concerns Assessment Noted Time PHQ-9 Depression Total Score: 4 05/18/20 2:21 PM EDT documented as of this encounter Care Teams It Help Desk Analyst Relationship Specialty Start Date End Date Sharon Han CNP [address] [place] [address] PCP - General Family Medicine 05/18/25 documented as of this encounter
[2025-06-17 02:37] LABS: MANUAL DIFF FLAG NO
[2025-06-17 02:38] LABS: Hematocrit 36.9 % (37.0-47.0); Hemoglobin 12.0 g/dl (12.0-16.0); Imm Gran Abs Auto 0.02 X10*3/uL (0.00-0.03); Imm Gran Pct Auto 0.2 % (0.0-0.4); Lymphocytes Absolute Auto 2.8 X10*3/uL (1.2-4.9); Mean Corpuscular HGB Conc 32.5 g/dl (31.0-35.0); Mean Corpuscular Hemoglobin 27.9 pg (27.0-33.0); Mean Corpuscular Volume 85.8 fL (80.0-98.0); NRBC Abs Auto 0.000 X10*3/uL (0.0-0.012); NRBC Pct Auto 0.0 /100WBC (0.0-0.2); Platelet Count 338 X10*3/uL (160-400); Red Blood Count 4.30 X10*6/uL (4.20-5.50); White Blood Count 9.3 X10*3/uL (4.8-10.8)
[2025-06-17 02:53] LABS: Alanine Aminotransferase 24 U/L (0-31); Albumin Level 4.1 g/dL (3.5-5.0); Alkaline Phosphatase 57 U/L (39-117); Anion Gap 12 (12-20); Aspartate Amino Transferase 24 U/L (5-31); Blood Urea Nitrogen 9 mg/dL (9-16); Calcium 9.2 mg/dL (8.4-10.2); Carbon Dioxide 24 mmol/L (22-29); Chloride 110 mmol/L (96-108); Creatinine Clr Calc Pharmacy 166.4; Estimated Glomerular Filt Rate > 60; Potassium 3.9 mmol/L (3.3-5.1); Sodium 142 mmol/L (135-145); Total Protein 7.0 g/dL (6.5-8.0)
[2025-06-17 02:58] LABS: IDNOW Serial# 152EDE1D; Influenza B2 Negative (Negative)
[2025-06-17 02:59] LABS: COVID-19 Test Negative (Negative); IDNOW Serial# 16C4AD1C
[2025-06-17 03:00] LABS: Troponin-I High Sensitivity < 2.7 ng/L (<3.5-17.0)
[2025-06-17] MEDS: Lidocaine 4 % Patch ADH..PATCH 1 PATCH TRANSDERMA (03:52)
[2025-06-17 04:50] VITALS: BP 100/44; PULSE 91; RESP 16; TEMP 36.6; O2SAT 99
[2025-06-17 05:24] VITALS: BP 100/44; PULSE 91; RESP 16; TEMP 36.6; O2SAT 99
== END 2025-06-17 05:25 | disposition home or self-care (01) ==
PROVIDERS: Emergency Provider Emergency Medicine
DX: M94.0 Chondrocostal junction syndrome [Tietze] (principal); R07.89 Other chest pain; R05.9 Cough, unspecified; Z11.52 Encounter for screening for COVID-19; Z79.899 Other long term (current) drug therapy
CPT/HCPCS: 36415; 71045; 80053; 84484; 85025; 87502; 87635; 93005; 96372; 99284; 99285; J1885

== ENCOUNTER → 2025-06-17 01:01 | Outpatient (BNV) | payer MEDICAID, SELFPAY | PROVIDERS: Emergency Provider Emergency Medicine; Visit Provider Internal Medicine Cardiovascular Disease | DX: R07.9 Chest pain, unspecified (principal) | CPT/HCPCS: 93010 ==

== ENCOUNTER → 2025-06-17 01:23 | Outpatient (BNV) | payer MEDICAID, SELFPAY | PROVIDERS: Emergency Provider Emergency Medicine; Visit Provider Radiology Diagnostic Radiology | DX: R07.9 Chest pain, unspecified (principal); R05.9 Cough, unspecified | CPT/HCPCS: 71045 ==